=== PATIENT | female | born 1935 | race Native Hawaiian/Other Pacific Islander ===

== ENCOUNTER 2017-01-29 09:07 | Inpatient (IN) | payer MEDICARE, OTHER ==
[2017-01-29] VITALS (15 sets, daily range): BP systolic 132–222; BP diastolic 59–95; PULSE 57–117; RESP 15–24; TEMP 97.5–99.4; O2SAT 91–100
[~2017-01-29] VITALS: Ht 157.5 cm; Wt 80.4 kg
[~2017-01-29 09:07] MED LIST: ALPR.25 PO; HYDR-2768 PO; LISI-360 PO; MMW SS; PRED20 PO; SIMV20TA PO; TRAM100T19 PO
[2017-01-29] MEDS ORDERED: CHLORO250 PO (09:18)
[2017-01-29] MEDS ORDERED: ALPR.25 PO (09:18)
[2017-01-29] MEDS ORDERED: LISI-519 PO (09:18)
[2017-01-29] MEDS ORDERED: ZOCO10TA PO (09:18)
[2017-01-29] MEDS ORDERED: DILTIAZEM HCL 25 MG/5 ML VIAL IV ONE (09:45)
--- NOTE | 2017-01-29 10:01 | PD ---
HPI Chief Complaint: Seizure Time Seen by Provider: 09:18 Travel History International Travel<30 days: No Contact w/Intl Traveler<30days: No Traveled to known affect area: No History of Present Illness HPI 81yo F with PMH of meningioma s/p resection by Dr. Laurent presents to the ED with seizure today. Her son came later and he was the one who witnessed it, said she was repeating herself and making his bed. She seemed confused and then had stiffen up and her eyes rolled back. Son said he caught her and she did not fall. EVAC also witnessed another seizure and pt was given ativan 2mg IV prior to arrival. Pt was found to be in afib RVR at 107bpm. Never had afib before. Also with coarse breath sounds and O2 sat in the low 90s on nasal cannula. PFSH Past Medical History Anxiety: Yes High Cholesterol: Yes Diabetes: No Diminished Hearing: Yes ([place].) Hypertension: Yes Neurologic: Yes (HX FRONTAL BRAIN TUMOR) Immunizations Current: No Menopausal: Yes Past Surgical History Neurologic Surgery: Yes (PARTIAL BENIGN BRAIN TUMOR REMOVED [address] LAURENT) Social History Alcohol Use: No Tobacco Use: No Substance Use: No Allergies-Medications (Allergen,Severity, Reaction): Coded Allergies: penicillin G (Unverified Allergy, Mild, HIVES, 01/29/17) Reported Meds & Prescriptions Reported Meds & Active Scripts Active Reported Chlorothiazide 250 Mg Tab 250 Mg PO DAILY Xanax (Alprazolam) 0.25 Mg Tab 0.25 Mg PO Q6H PRN Lisinopril 5 Mg Tab 5 Mg PO DAILY Zocor (Simvastatin) 10 Mg Tab 10 Mg PO DAILY Review of Systems ROS Limitations: Clinical Condition Physical Exam Narrative GENERAL: 81yo F in moderate distress. SKIN: Focused skin assessment warm/dry. HEAD: Atraumatic. Normocephalic. EYES: Pupils equal and round at 3mm bilaterally. ENT: No nasal bleeding or discharge. Mucous membranes pink and moist. NECK: Trachea midline. No JVD. CARDIOVASCULAR: Irregular rate and rhythm. RESPIRATORY: Coarse breath sounds bilaterally. GASTROINTESTINAL: Abdomen soft, non-tender, nondistended. MUSCULOSKELETAL: No obvious deformities. No clubbing. No cyanosis. No edema. NEUROLOGICAL: Pt opens eyes with physical stimulation. Does not follow command. Seems post ictal. Data Data Last Documented VS Vital Signs Date Time Temp Pulse Resp B/P (MAP) Pulse Ox O2 Delivery O2 Flow Rate FiO2 01/29/17 09:30 110 15 173/73 (106) 91 Nasal Cannula 3.00 01/29/17 09:13 97.5 Orders Orders Diltiazem Inj (Cardizem Inj) (01/29/17 09:45) Ct Brain W/O Iv Contrast(Rout) (01/29/17 ) Complete Blood Count With Diff (01/29/17 09:43) Comprehensive Metabolic Panel (01/29/17 09:43) Magnesium (Mg) (01/29/17 09:43) Thyroid Stimulating Hormone (01/29/17 09:43) Prothrombin Time / Inr (Pt) (01/29/17 09:43) Act Partial Throm Time (Ptt) (01/29/17 09:43) Troponin I (01/29/17 09:43) Chest, Single Ap (01/29/17 ) Admit Order (Ed Use Only) (01/29/17 10:01) Labs Laboratory Tests Test 01/29/17 09:45 White Blood Count 15.1 TH/MM3 Red Blood Count 4.24 MIL/MM3 Hemoglobin 12.8 GM/DL Hematocrit 38.5 % Mean Corpuscular Volume 90.7 FL Mean Corpuscular Hemoglobin 30.1 PG Mean Corpuscular Hemoglobin Concent 33.2 % Red Cell Distribution Width 12.8 % Platelet Count 336 TH/MM3 Mean Platelet Volume 9.5 FL Neutrophils (%) (Auto) 55.7 % Lymphocytes (%) (Auto) 37.9 % Monocytes (%) (Auto) 3.5 % Eosinophils (%) (Auto) 1.6 % Basophils (%) (Auto) 1.3 % Neutrophils # (Auto) 8.4 TH/MM3 Lymphocytes # (Auto) 5.7 TH/MM3 Monocytes # (Auto) 0.5 TH/MM3 Eosinophils # (Auto) 0.2 TH/MM3 Basophils # (Auto) 0.2 TH/MM3 CBC Comment AUTO DIFF Differential Total Cells Counted 100 Neutrophils % (Manual) 52 % Lymphocytes % 43 % Monocytes % 4 % Eosinophils % 1 % Neutrophils # (Manual) 7.9 TH/MM3 Differential Comment FINAL DIFF MANUAL Platelet Estimate NORMAL Platelet Morphology Comment NORMAL Red Cell Morphology Comment NORMAL Prothrombin Time 10.3 SEC Prothromb Time International Ratio 1.0 RATIO Activated Partial Thromboplast Time 22.2 SEC Blood Urea Nitrogen 12 MG/DL Creatinine 1.23 MG/DL Random Glucose 192 MG/DL Total Protein 7.9 GM/DL Albumin 3.5 GM/DL Calcium Level 9.0 MG/DL Magnesium Level 1.8 MG/DL Alkaline Phosphatase 88 U/L Aspartate Amino Transf (AST/SGOT) 14 U/L Alanine Aminotransferase (ALT/SGPT) 16 U/L Total Bilirubin 0.5 MG/DL Sodium Level 138 MEQ/L Potassium Level 2.7 MEQ/L Chloride Level 102 MEQ/L Carbon Dioxide Level 15.4 MEQ/L Anion Gap 21 MEQ/L Estimat Glomerular Filtration Rate 42 ML/MIN Hemoglobin A1c 6.0 % Troponin I LESS THAN 0.02 NG/ML Thyroid Stimulating Hormone 3rd Gen 1.740 uIU/ML MDM Medical Decision Making Medical Screen Exam Complete: Yes Emergency Medical Condition: Yes Interpretation(s) EKG: Afib at 107bpm. ST depression diffusely. Normal axis. Differential Diagnosis ICH vs. CVA vs. Status epilepticus Narrative Course 81yo F with PMH of meningioma here with witnessed seizure given ativan 2mg IV. Pt had coarse breath sounds and hypoxic so likely aspiration pneumonia. Pt also found to be in afib RVR 110-120s. Pt given cardizem 15mg IV and HR improved to 80s. Pt was just given ativan by EVAC but oxygen saturation is decreasing and require 5-6L NC. Discussed with daughter possibility of intubation if her mental status does not improve and her oxygenation worsens. Pt's daughter is the clinical coordinator of ICU so she called toggler Dr. Cook herself. Labs, CXR and CT brain ordered and still pending. Dr. Cook is at bedside and wants pt to be transferred to ICU from CT scan. CXR was completed in the ED and showed minimal left basilar density. Care has been taken over by ICU attending Dr. Cook at this time. Pt admitted to him. Critical Care Narrative Aggregate critical care time was 35 minutes. Time to perform other separately billable procedures was not included in the critical care time. My time did not include minutes spent treating any other patients simultaneously or on activities that did not directly contribute to the patient's treatment. The services I provided to this patient were to treat and/or prevent clinically significant deterioration that could result in: cardiovascular collapse or . I provided critical care services requiring my management, as noted below: Chart data review, documentation time, medication orders and management, vital sign assessments/reviewing monitor data, ordering and reviewing lab tests, ordering and interpreting/reviewing x-rays and diagnostic studies, care of the patient and discussion of the patient with the admitting physicians. Diagnosis Primary Impression: Acute respiratory failure Qualified Codes: J96.01 - Acute respiratory failure with hypoxia Additional Impression: Atrial fibrillation with RVR Admitting Information Admitting Physician Requests: Miri Dolan DO Jan 29, 2017 10:01
[2017-01-29] MEDS ORDERED: NOREPINEPHRINE-DEXTROSE DRIP 250 ML IV ONE (10:11)
[2017-01-29] MEDS ORDERED: PROPOFOL 500 MG/50 ML INJ 50 ML ONE ×2 (10:12→10:46)
[2017-01-29 10:14] LABS: AUTOMATED NEUTROPHIL # 8.4 TH/MM3 (1.8-7.7); BASOPHIL # 0.2 TH/MM3 (0-0.2); BASOPHIL % 1.3 % (0.0-2.0); EOSINOPHIL # 0.2 TH/MM3 (0-0.4); EOSINOPHIL % 1.6 % (0.0-4.0); HEMATOCRIT 38.5 % (35.0-46.0); LYMPH % 37.9 % (9.0-44.0); LYMPHOCYTE # 5.7 TH/MM3 (1.0-4.8); MEAN CELL VOLUME 90.7 FL (80.0-100.0); MEAN CORPUSCULAR HEMOGLOBIN 30.1 PG (27.0-34.0); MEAN CORPUSCULAR HGB CONC 33.2 % (32.0-36.0); MONO % 3.5 % (0.0-8.0); NEUT % 55.7 % (16.0-70.0); PLATELET COUNT 336 TH/MM3 (150-450); RED BLOOD COUNT 4.24 MIL/MM3 (4.00-5.30); RED CELL DISTRIBUTION WIDTH 12.8 % (11.6-17.2); WHITE BLOOD COUNT 15.1 TH/MM3 (4.0-11.0)
--- NOTE | 2017-01-29 10:14 | RADRPT ---
EXAM DATE/TIME: 01/29/2017 10:02 [facility] COMPARISON: No previous studies available for comparison. INDICATIONS : Altered mental status, seizure RADIATION DOSE: 30.55 CTDIvol (mGy) MEDICAL HISTORY : Meningioma. SURGICAL HISTORY : Craniotomy. ENCOUNTER: Initial ACUITY: 1 day PAIN SCALE: 0/10 LOCATION: cranial TECHNIQUE: Multiple contiguous axial images were obtained of the head. Using automated exposure control and adj ustment of the mA and/or kV according to patient size, radiation dose was kept as low as reasonably a chievable to obtain optimal diagnostic quality images. DICOM format image data is available electro nically for review and comparison. FINDINGS: CEREBRUM: Bifrontal encephalomalacia. Areas of low-attenuation throughout the white matter. The ventricles are normal for age. No evidence of midline shift, mass lesion, hemorrhage or acute infarction. No extra -axial fluid collections are seen. POSTERIOR FOSSA: The cerebellum and brainstem are intact. The 4th ventricle is midline. The cerebellopontine angle i s unremarkable. EXTRACRANIAL: The visualized portion of the orbits is intact. SKULL: The calvaria is intact. No evidence of skull fracture. CONCLUSION: 1. Bifrontal encephalomalacia. 2. No acute intracranial abnormality. 3. Nonspecific white matter changes Kiko Carson MD on January 29, 2017 at 10:10 Board Certified Radiologist. This report was verified electronically.
[2017-01-29] MEDS ORDERED: ETOMIDATE 40 MG/20 ML VIAL ONE (10:15)
[2017-01-29] MEDS ORDERED: NOREPINEPHRINE INJ 4 MG in SODIUM CHLOR 0.9% 250 ML INJ 246 ML IV PRN ×2 (10:15→10:45)
[2017-01-29] MEDS ORDERED: TERBUTALINE INJ 1 MG/ML AMP SQ PRN (10:15)
[2017-01-29] MEDS ORDERED: MIDAZOLAM HCL 5 MG/ML VIAL (1 ML) ONE (10:15)
[2017-01-29 10:16] LABS: HEMO FLAGS AUTO DIFF
[2017-01-29] MEDS ORDERED: ROCURONIUM INJ 50 MG/5 ML VIAL ONE (10:16)
--- NOTE | 2017-01-29 10:21 | RADRPT ---
EXAM DATE/TIME: 01/29/2017 09:54 [facility] COMPARISON: No previous studies available for comparison. INDICATIONS : Hypoxemia. MEDICAL HISTORY : Hypercholesterolemia. Hypertension Anxiety. SURGICAL HISTORY : Unobtainable. ENCOUNTER: Initial ACUITY: 1 day PAIN SCORE: Non-responsive. LOCATION: Bilateral chest FINDINGS: A single view of the chest demonstrates left basilar density. Right lung is clear. The cardiomediast inal contours are unremarkable. Osseous structures are intact. CONCLUSION: Left basilar density. Kiko Carson MD on January 29, 2017 at 10:15 Board Certified Radiologist. This report was verified electronically.
[2017-01-29 10:28] LABS: APTT (PATIENT) 22.2 SEC (24.3-30.1); PROTHROMBIN TIME - PATIENT 10.3 SEC (9.8-11.6)
[2017-01-29] MEDS ORDERED: FOSPHENYTOIN INJ 1,000 MGPE in SODIUM CHLORIDE 0.9% INJ 50 ML IV ONE (10:45)
[2017-01-29 10:47] LABS: EOSINOPHILS 1 % (0-4); NEUTROPHIL # MANUAL DIFF 7.9 TH/MM3 (1.8-7.7); PLATELET ESTIMATE SMEAR NORMAL (NORMAL); PLATELET MORPHOLOGY NORMAL (NORMAL); POLYS (SEG NEUTROPHILS) 52 % (16-70); SCAN/DIFF FINAL DIFF MANUAL; WBC DIFF SAMPLE 100
--- NOTE | 2017-01-29 10:53 | PD.PROCEDR ---
Procedure Note Procedure After the risks and benefits were discussed the following procedure was performed: INTUBATION: The patient was put in optimal position for the procedure. Rapid sequence intubation was initiated by me using 20 milligrams of etomidate IV and 5 milligrams of Versed IV, and rocuronium 50 mg. DL with Mac 4 blade, Grade 1 view. The patient was intubated with a 7.5 cuffed endotracheal tube. Tube placement was confirmed by visualization of the tube and balloon passing through the cords, capnometry and subsequent chest x-ray. Breath sounds were equal and well aerated bilaterally postintubation. No breath sounds over stomach. Patient tolerated procedure well. Juan Cook MD Jan 29, 2017 10:53
[2017-01-29 10:54] LABS: ALKALINE PHOSPHATASE 88 U/L (45-117); ALT (GPT) 16 U/L (10-53); ANION GAP 21 MEQ/L (5-15); AST (GOT) 14 U/L (15-37); BICARBONATE 15.4 MEQ/L (21.0-32.0); BLOOD UREA NITROGEN 12 MG/DL (7-18); CHLORIDE 102 MEQ/L (98-107); GLOMERULAR FILTRATION RATE 42 ML/MIN (>89); MAGNESIUM 1.8 MG/DL (1.5-2.5); SODIUM (NA) 138 MEQ/L (136-145); TOTAL BILIRUBIN ADULT 0.5 MG/DL (0.2-1.0)
--- NOTE | 2017-01-29 10:54 | RADRPT ---
EXAM DATE/TIME: 01/29/2017 10:36 [facility] COMPARISON: CHEST SINGLE AP, January 29, 2017, 9:54. INDICATIONS : Post central line and ET Tube placement. MEDICAL HISTORY : Hypercholesterolemia. Hypertension Anxiety. SURGICAL HISTORY : Unobtainable. ENCOUNTER: Subsequent ACUITY: 1 day PAIN SCORE: Non-responsive. LOCATION: Bilateral chest FINDINGS: A single view of the chest demonstrates minimal left basilar density without evidence of mass, infilt rate or effusion. Endotracheal tube 3 cm above the rozina. Left jugular central line with tip in the SVC. No pneumothorax. The cardiomediastinal contours are unremarkable. Osseous structures are intac t. CONCLUSION: 1. Minimal left basilar density. 2. Adequate placement of endotracheal tube and left jugular central line Kiko Carson MD on January 29, 2017 at 10:52 Board Certified Radiologist. This report was verified electronically.
[2017-01-29 10:56] LABS: POTASSIUM 2.7 MEQ/L (3.5-5.1)
--- NOTE | 2017-01-29 11:13 | MB ---
cc: MARISOL BEARDEN M.D. DATE OF CONSULTATION 01/29/2017 REASON FOR CONSULTATION Seizure, rule out stroke. HISTORY OF PRESENT ILLNESS Ms. Monreal is an 81 year-old female with a history of previous left frontal meningioma which was initially resected in 2001. There is residual tumor due to the proximity to the optic nerve. She has a questionable history of TIA four years ago. She was in her usual state of health until today when she suddenly developed difficulty with her speech repeating the same thing over and over again and then sudden went into a grand mal seizure with jerking of both upper and lower extremities. She had repetitive seizures, presented to the ER, was given Ativan. She has been ordered to be loaded with Cerebyx as well. No previous history of seizures. In the ER was found to be weak on the right side, however, this was showing improvement according to her daughter. She was able to pull the sheets up with the right arm whereas initially she had difficulty with that. PAST MEDICAL HISTORY Remarkable for: 1. Left frontal meningioma partially resected. 2. She has new onset atrial fibrillation just noticed today. No prior history of atrial fibrillation. 3. Hypercholesterolemia 4. Anxiety MEDICATIONS 1. Xanax 0.25 mg a day 2. Chlorothiazide 250 mg daily 3. Lisinopril 5 mg daily 4. Zocor 10 mg daily. Apparently she ran out of the Xanax last Sunday. NEUROLOGICAL EXAM This is limited as the patient is on Propofol and paralyzed. VITAL SIGNS: Blood pressure 177/77, pulse 110, respirations 15, temperature is 97.5 degrees. HIGHER CORTICAL FUNCTION: The patient is sedated on Propofol. CRANIAL NERVES: Pupils are 2 mm symmetric, extraocular movements are intact to dolls' eye maneuver. MOTOR EXAM: There are no spontaneous movements. No withdrawal as she is sedated and on paralytics. Reflexes are absent. CT scan of the head shows encephalomalacia in the bifrontal region, no acute change. LABS The white count is 15,000, hemoglobin 12.8, hematocrit 38%, platelets 336,000. Coag's PT 10.3, INR 1, APTT 22.2. The rest of the labs are pending. EKG atrial fibrillation. IMPRESSION I suspect this probably is a focal seizure probable with a left hemisphere focus from her meningioma with the initial speech changes and then secondary generalization. 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 However given the new onset atrial fibrillation, we need to rule out stroke. Would recommend proceeding therefore with a stat MRI of the brain to see if there is any diffusion abnormality. Would not recommend IV tPA in this case even if there is a stroke on the MRI, however, because of the residual tumor which would post a hemorrhagic risk. However if the MRI does reveal evidence of a diffusion defect consistent with a stroke, would suspect possible CT angiography to evaluate for possible thrombectomy. I agree with letting the . We will obtain an EEG as well. Place under seizure precautions. Thank you for asking us to see this patient. MD YOSELIN Griffin/OLI /10:49 AM /10:53 AM
[2017-01-29] MEDS ORDERED: GADODIAMIDE PF 287 MG/ML 5 ML VIAL (for RAD MRI) IVCONTRAST ONE ×2 (11:21→14:20)
[2017-01-29 11:43] LABS: BLOOD, URINE SMALL (NEG); COMMENT (UR) CATH-CULT NOT IND; CULTURE IF INDICATED CATH CULTURE NOT IND; GLUCOSE,URINE NEG (NEG); HYALINE CAST, URINE 4 /lpf (RARE); KETONE, URINE TRACE mg/dL (NEG); MUCUS URINE FEW /lpf (OCC); NITRITE,URINE NEG (NEG); SQUAMOUS EPITHELIAL CELL URINE <1 /hpf (0-5); URINE COLOR LIGHT-YELLOW (YELLW/STRAW)
[2017-01-29] MEDS ORDERED: ICU - MAGNESIUM OXIDE 400 MG TAB PO PRN (12:00)
[2017-01-29] MEDS ORDERED: ICU - MAGNESIUM SULFATE 4 GM/NS 100 ML IV PRN ×2 (12:00)
[2017-01-29] MEDS ORDERED: ICU - POTASSIUM PHOSPHATE 30 MMOL/NS 250 ML IV PRN ×2 (12:00)
[2017-01-29] MEDS ORDERED: ICU - CALL ORDERING PHYSICIAN PRN (12:00)
[2017-01-29] MEDS ORDERED: POTASSIUM CHLORIDE 25 MEQ EFFERVESCENT TAB PO PRN (12:00)
[2017-01-29] MEDS ORDERED: ICU - MAGNESIUM SULFATE 2 GM/NS 100 ML IV PRN ×2 (12:00)
[2017-01-29] MEDS ORDERED: ICU - SODIUM PHOSPHATE 30 MMOL/NS 250 ML IV PRN ×2 (12:00)
[2017-01-29] MEDS ORDERED: ICU - D/C ICU ELECTROLYTE ORDERS PRN (12:00)
[2017-01-29] MEDS ORDERED: ICU - POTASSIUM PHOSPHATE MONOBASIC 500 MG TAB PO PRN (12:00)
--- NOTE | 2017-01-29 12:01 | HHI.HP ---
HPI Service Critical Care Medicine Primary Care Physician Leah Borja MD Admission Diagnosis Status epilepticus, afib RVR Diagnosis: (1) New onset seizure Diagnosis: Principal (2) Acute encephalopathy Diagnosis: Principal (3) Todds paralysis vs acute CVA Diagnosis: Principal (4) Acute respiratory failure Diagnosis: Principal (5) Atrial fibrillation with RVR Diagnosis: Principal (6) Possible aspiration Diagnosis: Principal (7) History of resection of meningioma Diagnosis: Principal Chief Complaint: Recurrent seizure Probable aspiration Possible CVA Travel History International Travel<30 Days: No Contact w/Intl Traveler <30 Da: No Traveled to Known Affected Are: No History of Present Illness Patient is a 71-year-old female with past medical history significant for a left frontal meningioma resection in 2001 with residual tumor (MRI showing meningioma 5.4x4.4x1.6cm), hypertension, dyslipidemia who was found to have a 5-10 minutes witnessed tonic-clonic seizure today. EMS was called and on their arrival patient had another two-minute tonic-clonic seizures and received 2 mg Ativan. In the ER was evaluated by Dr. Harper. Critical care medicine was consulted for new onset seizures and postictal encephalopathy. I immediately evaluated the patient in the ED. Patient is difficult to arouse even though she opens eyes to painful stimuli immediately goes back to sleep. Withdraws extremities localizes with left upper extremity. Right upper extremity appeared weaker. Her chest exam revealed bilateral coarse wheezes and crackles, airway protection questionable. A stat CT showed bifrontal encephalomalacia but no acute findings. Patient was emergently moved to the ICU and I intubated her for airway protection. Also placed left IJ central line. Case discussed extensively with Dr. Osman neurology. In his opinion, which I agree it appears that patient suffered new onset grand mal seizure with Gómez's paralysis and less likely to be acute CVA. With history of meningioma Dr. Osman does not want to do empiric TPA. We will get a stat MRI of the brain. Daughter was updated. Patient has a history of questionable TIA about 4 years ago. I have ordered Cerebyx loading dose 1 g and continued Cerebyx at 100 mg every 8 hours. Stat EEG also pending at this time. I'm also given a history that patient has chronic Xanax use 0.25 mg daily at bedtime for insomnia. She had ran out of Xanax since 01/26/17. Patient was also found to be in atrial fibrillation with rapid ventricular response which is new onset. Post intubation and sedation rate is controlled patient remains in A. fib Review of Systems ROS Limitations: Altered Mental Status Past Family Social History Allergies: Coded Allergies: penicillin G (Unverified Allergy, Mild, HIVES, 01/29/17) Past Medical History MRI 05/12/16 showing meningioma 5.4x4.4x1.6cm Dyslipidemia Hypertension Anxiety New onset A. fib Past Surgical History Frontal meningioma resection in 2001 Reported Medications Chlorothiazide 250 Mg Tab 250 Mg PO DAILY Xanax (Alprazolam) 0.25 Mg Tab 0.25 Mg PO Q6H PRN Lisinopril 5 Mg Tab 5 Mg PO DAILY Zocor (Simvastatin) 10 Mg Tab 10 Mg PO DAILY Active Ordered Medications Reviewed Family History No family history of brain tumors or seizures Social History No alcohol or tobacco use Physical Exam Vital Signs Vital Signs Date Time Temp Pulse Resp B/P (MAP) Pulse Ox O2 Delivery O2 Flow Rate FiO2 01/29/17 11:30 100 Mechanical Ventilator 50 01/29/17 10:20 50 01/29/17 10:20 100 50 01/29/17 10:19 01/29/17 09:30 110 15 173/73 (106) 91 Nasal Cannula 3.00 01/29/17 09:18 113 15 97 Non-Rebreather 15.00 01/29/17 09:13 97.5 117 15 98 Non-Rebreather 15.00 Physical Exam GENERAL: 81-year-old female somnolent tender SKIN:Warm/dry. HEAD: Atraumatic. Normocephalic. EYES: Pupils equal and round at 2mm bilaterally. ENT: No nasal bleeding or discharge. NECK: Trachea midline. No JVD. CARDIOVASCULAR: Atrial fibrillation with rapid ventricular response. No murmur appreciated. RESPIRATORY: Coarse breath sounds bilaterally. Bilateral expiratory wheezing heard GASTROINTESTINAL: Abdomen soft, non-tender, nondistended. MUSCULOSKELETAL: No obvious deformities. No clubbing. No cyanosis. No edema. NEUROLOGICAL: Patient is obtunded, briefly opens eyes to painful stimuli. Localizes with left upper extremity withdrawals bilateral lower extremity. Limited withdrawal of right upper extremity Laboratory Laboratory Tests Test 01/29/17 09:45 01/29/17 10:30 White Blood Count 15.1 Red Blood Count 4.24 Hemoglobin 12.8 Hematocrit 38.5 Mean Corpuscular Volume 90.7 Mean Corpuscular Hemoglobin 30.1 Mean Corpuscular Hemoglobin Concent 33.2 Red Cell Distribution Width 12.8 Platelet Count 336 Mean Platelet Volume 9.5 Neutrophils (%) (Auto) 55.7 Lymphocytes (%) (Auto) 37.9 Monocytes (%) (Auto) 3.5 Eosinophils (%) (Auto) 1.6 Basophils (%) (Auto) 1.3 Neutrophils # (Auto) 8.4 Lymphocytes # (Auto) 5.7 Monocytes # (Auto) 0.5 Eosinophils # (Auto) 0.2 Basophils # (Auto) 0.2 CBC Comment AUTO DIFF Differential Total Cells Counted 100 Neutrophils % (Manual) 52 Lymphocytes % 43 Monocytes % 4 Eosinophils % 1 Neutrophils # (Manual) 7.9 Differential Comment FINAL DIFF MANUAL Platelet Estimate NORMAL Platelet Morphology Comment NORMAL Red Cell Morphology Comment NORMAL Prothrombin Time 10.3 Prothromb Time International Ratio 1.0 Activated Partial Thromboplast Time 22.2 Blood Urea Nitrogen 12 Creatinine 1.23 Random Glucose 192 Total Protein 7.9 Albumin 3.5 Calcium Level 9.0 Magnesium Level 1.8 Alkaline Phosphatase 88 Aspartate Amino Transf (AST/SGOT) 14 Alanine Aminotransferase (ALT/SGPT) 16 Total Bilirubin 0.5 Sodium Level 138 Potassium Level 2.7 Chloride Level 102 Carbon Dioxide Level 15.4 Anion Gap 21 Estimat Glomerular Filtration Rate 42 Troponin I LESS THAN 0.02 Thyroid Stimulating Hormone 3rd Gen 1.740 Urine Color LIGHT-YELLOW Urine Turbidity CLEAR Urine pH 7.0 Urine Specific [place] 1.012 Urine Protein 300 Urine Glucose (UA) NEG Urine Ketones TRACE Urine Occult Blood SMALL Urine Nitrite NEG Urine Bilirubin NEG Urine Urobilinogen LESS THAN 2.0 Urine Leukocyte Esterase NEG Urine RBC 3 Urine WBC 3 Urine Squamous Epithelial Cells <1 Urine Hyaline Casts 4 Urine Mucus FEW Microscopic Urinalysis Comment CATH-CULT NOT IND Result Diagram: 01/29/1794401/29/[address] of the brain shows bifrontal encephalomalacia MRI pending at this time Caprini VTE Risk Assessment Caprini VTE Risk Assessment: Mod/High Risk (score >= 2) VTE Pharm Contraindication: Intracranial lesions Caprini Risk Assessment Model Point Value = 1 Point Value = 2 Point Value = 3 Point Value = 5 Age 41-60 Minor surgery BMI > 25 kg/m2 Swollen legs Varicose veins or History of unexplained or recurrent spontaneous Oral contraceptives or hormone replacement Sepsis (< 1 month) Serious lung disease, including pneumonia (< 1 month) Abnormal pulmonary function Acute myocardial infarction Congestive heart failure (< 1 month) History of inflammatory bowel disease Medical patient at bed rest Age 61-74 Arthroscopic surgery Major open surgery (> 45 min) Laparoscopic surgery (> 45 min) Malignancy Confined to bed (> 72 hours) Immobilizing plaster cast Central venous access Age >= 75 History of VTE Family history of VTE Factor V Leiden Prothrombin [id number] Lupus anticoagulant Anticardiolipin antibodies Elevated serum homocysteine Heparin-induced thrombocytopenia Other congenital or acquired thrombophilia Stroke (< 1 month) Elective arthroplasty Hip, pelvis, or leg fracture Acute spinal cord injury (< 1 month) Prophylaxis Regimen Total Risk Factor Score Risk Level Prophylaxis Regimen 0-1 Low Early ambulation 2 Moderate Order ONE of the following: *Sequential Compression Device (SCD) *Heparin 5000 units SQ BID 3-4 Higher Order ONE of the following medications: *Heparin 5000 units SQ TID *Enoxaparin/Lovenox 40 mg SQ daily (WT < 150 kg, CrCl > 30 mL/min) *Enoxaparin/Lovenox 30 mg SQ daily (WT < 150 kg, CrCl > 10-29 mL/min) *Enoxaparin/Lovenox 30 mg SQ BID (WT < 150 kg, CrCl > 30 mL/min) AND/OR *Sequential Compression Device (SCD) 5 or more Highest Order ONE of the following medications: *Heparin 5000 units SQ TID (Preferred with Epidurals) *Enoxaparin/Lovenox 40 mg SQ daily (WT < 150 kg, CrCl > 30 mL/min) *Enoxaparin/Lovenox 30 mg SQ daily (WT < 150 kg, CrCl > 10-29 mL/min) *Enoxaparin/Lovenox 30 mg SQ BID (WT < 150 kg, CrCl > 30 mL/min) AND *Sequential Compression Device (SCD) Assessment and Plan Assessment and Plan NEURO: New onset seizures with postictal state Post ictal Gómez's paralysis Acute encephalopathy Large frontal meningioma - Received Ativan for seizure. Continue Ativan 2 mg IV every 4 hours when necessary for seizures - Stat EEG. Cerebyx loading dose 1 g and 100 mg every 8 hours - Postintubation propofol for sedation and vent synchrony - CT of the head did not show any acute changes, MRI of the brain to rule out acute stroke is pending - With history of large meningioma Dr. Osman does not want to give empiric TPA - Start aspirin 81 mg daily - Neurosurgery Dr. Fabian Consulted. Discussed extensively with neurology Dr. Osman adn Dr. Fabian - MRI 05/12/16 showing meningioma 5.4x4.4x1.6cm RESP: Acute respiratory failure Aspiration pneumonitis - Intubated for airway protection - Continue assist control mechanical ventilation, ventilator bundle, DuoNeb every 6 hours when necessary - Check sputum culture - Start SBT once neuro status improved, seizures controlled CV: New onset atrial fibrillation with RVR Permissive hypertension - Normal saline IV fluids 2L bolus and 125 ml per hour - check 2d echo, cardiac enzymes, check TSH - Target systolic blood pressure 170-180, until stroke is ruled out. IV labetolol, hydralazine to keep SBP <180 - Cardizem if needed for heart rate control - Start aspirin 81 mg daily - Discussed with Dr. Osman, avoid anticoagulation until cleared by neurosurgery GI: - NPO except meds, IV famotidine : Acute kidney injury most likely from dehydration - Continue aggressive hydration as above. Monitor renal function closely. Viera catheter. ID: - Monitor for infection especially aspiration pneumonia - Check sputum culture, check UA. No antibiotics at this time HEME: Leukocytosis - Monitor CBC, CMP, coags - Leukocytosis most likely related to stress ENDO: Hypokalemia Hyperglycemia - Electrolyte replacement per protocol - Sliding-scale insulin - Check hemoglobin A1c PROPH: - Bilateral lower extremity SCDs. Avoid chemical DVT prophylaxis until cleared by neurosurgery. IV famotidine for GI prophylaxis LINES: - Left IJ central line placed CC time 42 min excluding procedures Code Status Full Discussed Condition With Rui Corral and daughter Juan Penaloza MD Jan 29, 2017 12:01
[2017-01-29] MEDS: SODIUM CHLOR 0.9% 1000 ML INJ 1,000 ML IV SCH ×2 (12:14→18:55)
[2017-01-29] MEDS: ICU - POTASSIUM CHLORIDE/AQUEOUS SOLN 20 MEQ/100 ML IVPB IV PRN ×2 (12:28→14:32)
[2017-01-29] MEDS ORDERED: hydrALAZINE HCL 20 MG/ML VIAL IV PUSH PRN (12:30)
--- NOTE | 2017-01-29 12:41 | PD.PROCEDR ---
Central Line Procedure REASON FOR PROCEDURE Central venous access PROCEDURE PERFORMED Central line placement: LIJ central line, US guided CONSENT Informed consent for procedure was obtained from daughter. The risks and benefits of the procedure were discussed to include but limited to bleeding, clot formation, infection, and even . ANESTHESIA Local injection of 1% Lidocaine DESCRIPTION OF THE PROCEDURE The patient was placed in supine, mild Trendelenburg position. The area was exposed and cleansed with ChloraPrep, times two. Large sterile drape was used to cover the patient, with the site exposed, under sterile conditions including cap, face mask, sterile gown, and sterile gloves. On single attempt, the introducer needle was inserted with negative pressure in syringe and venous flash was obtained. The guide wire was then advanced without any restriction and the needle was removed. The dilator was used without any complications. Using Seldinger technique the 20 CM 7F catheter was advanced over the guide wire to a depth of 18 centimeters. The guide wire was removed. All ports were aspirated with dark venous blood return and flushed easily with sterile saline. All ports were capped. Antibiotic disc was placed around central line at puncture site. The central line was secured to the skin with two interrupted 2.0 silk sutures. The area was bandaged with sterile see-through central line bandage. RADIOLOGICAL DATA Ultrasound guidance was used to locate LIJ COMPLICATIONS: No apparent complications ESTIMATED BLOOD LOSS: Less than 1 cc. Juan Cook MD Jan 29, 2017 12:41
[2017-01-29] MEDS ORDERED: LABETALOL HCL 100 MG/20 ML VIAL IV PUSH PRN (12:45)
[2017-01-29] MEDS ORDERED: LORazepam 2 MG/ML VIAL IV PUSH PRN (13:00)
--- NOTE | 2017-01-29 13:07 | MG ---
cc: ANNETTE CLAYTON M.D. Lab No: 17- Date: 01/29/2017 Age: 81 Sex: F Race: ___ INDICATIONS A stat EEG was obtained on this 81-year-old patient described as intubated, off Diprivan before the EEG was started. TECHNIQUE This EEG shows some mixture of rhythms. There are beta and theta rhythms. There is also some intermixed delta activity. There appears to be more of the slower rhythms on the right frontal head region and there is also decreased amplitude of the faster rhythms on the right. There are some associated sharp waves, but no spike discharges. No suggestions of ictal pattern. Photic stimulation disclosed no significant change. Throughout the study, there is some head movement discussed by the pharmacy technician assistant, but there were no clinical seizures. INTERPRETATION Abnormal EEG because of bilateral abnormalities possibly worse on the right hemisphere maximum frontally. These findings suggest bilateral structural abnormalities right more than left. There are some frontal sharp waves, but no definitive paroxysmal discharge present. No ictal pattern. MD HÉCTOR Wells/OLI /12:53 PM /12:59 PM
[2017-01-29 13:11] LABS: BLOOD GAS BASE EXCESS -3.4 mmol/L (-2-2); BLOOD GAS CARBOXYHEMOGLOBIN 0.8 % (0-4); BLOOD GAS HCO3 21 mmol/L (22-26); BLOOD GAS METHEMOGLOBIN 0.9 % (0-2); BLOOD GAS O2 HGB SATURATION 97 % (90-100); BLOOD GAS OXYGEN CONTENT 17.1 Vol % (12.0-20.0); BLOOD GAS PCO2 40 mmHg (38-42); BLOOD GAS PO2 141 mmHg (61-120); BLOOD GAS TOTAL HGB 12.4 G/DL (12.0-16.0); CRITICAL VALUE NO; DRAW SITE RT RADIAL; FIO2 50 %; NUMBER OF ARTERIAL PUNCTURES 1; OXYGEN DEVICE VENTILATOR; STAT NO; TEMP CORR TO 98.6; ULNAR PULSE PRESENT
[2017-01-29] MEDS ORDERED: GLUCAGON 1 MG/ML VIAL OTHER PRN (14:15)
[2017-01-29] MEDS ORDERED: DEXTROSE 50% IN WATER 50 ML VIAL(D50) IV PUSH PRN (14:15)
[2017-01-29] MEDS: FOSPHENYTOIN SODIUM 100 MG PE/2 ML VIAL IV SCH ×2 (14:33→21:55)
--- NOTE | 2017-01-29 14:38 | RADRPT ---
EXAM DATE/TIME: 01/29/2017 11:06 [facility] COMPARISON: No previous studies available for comparison. INDICATIONS : Right sided weakness. Seizures. CONTRAST: 14 cc Omniscan (gadodiamide) IV MEDICAL HISTORY : Hypertension. SURGICAL HISTORY : 2002 frontal lobe mengioma ENCOUNTER: Initial ACUITY: 1 day PAIN SCORE: Nonresponsive. LOCATION: cranial TECHNIQUE: Multiplanar, multisequence MRI of the brain was performed both prior to and following the administrat ion of paramagnetic contrast. FINDINGS: CEREBRUM: Extensive encephalomalacia with volume loss in marginal gliosis is identified in both frontal lobes. There is a large overlying craniotomy defect from prior surgery. Enhancing extra-axial mass is identified along the planum sphenoidale. The mass extends laterall y over the orbital apices and along the floor of the left anterior cranial fossa. Enhancing component within the left anterior cranial fossa and measures 1.8 x 3.6 x 1.9 cm in size. There is mild to mod erate mass effect seen in the orbital frontal region of the left frontal lobe. Suprasellar extension of the mass is seen centrally. The nodules are moderately distended. There is thinning of the corpus callosum. There are no foc ally obstructing lesion is identified. WHITE MATTER: Confluent periventricular T2 hyperintensity is noted. Additionally there are small foci of hyperinten sity throughout the deep white matter of the cerebral hemispheres. POSTERIOR FOSSA: The cerebellum and brainstem are intact. The 4th ventricle is midline. The cerebellopontine angle is unremarkable. The cerebellar tonsils are normal in position. DIFFUSION IMAGING: No focal areas of restricted diffusion are seen. No evidence of acute infarction. EXTRACRANIAL: The visualized portions of the orbits and paranasal sinuses are unremarkable. CONCLUSION: 1. Residual versus recurrent enhancing extra-axial mass is identified in the suprasellar cistern, eduin ng the planum sphenoidale and within the anterior cranial fossa. The largest component is in the left anterior cranial fossa causing mild to moderate effacement of the orbital frontal region of the fron brian lobe. 2. No evidence of acute infarct, hemorrhage or edema. 3. Extensive bifrontal encephalomalacia status post craniotomy. 4. 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 Mor Mckinnon MD on January 29, 2017 at 14:24 Board Certified Radiologist. This report was verified electronically.
[2017-01-29] MEDS: INSULIN ASPART SUPPLEMENTAL SCALE SQ SCH ×3 (14:41→23:00)
[2017-01-29] MEDS: PROPOFOL 1000 MG/100 ML IV PRN (16:22)
[2017-01-29 17:06] LABS: ANION GAP 8 MEQ/L (5-15); AST (GOT) 13 U/L (15-37); BICARBONATE 25.6 MEQ/L (21.0-32.0); BLOOD UREA NITROGEN 13 MG/DL (7-18); CHLORIDE 105 MEQ/L (98-107); GLOMERULAR FILTRATION RATE 54 ML/MIN (>89); MAGNESIUM 1.6 MG/DL (1.5-2.5); POTASSIUM 3.7 MEQ/L (3.5-5.1); SODIUM (NA) 139 MEQ/L (136-145)
[2017-01-29 17:08] LABS: ALT (GPT) 17 U/L (10-53)
[2017-01-29 17:17] LABS: HEMOGLOBIN A1b 1.8 %; HEMOGLOBIN Ao 84.4 %; HEMOGLOBIN LA1C 2.3 %; HEMOGLOBIN P3 3.8 %
[2017-01-29 17:43] LABS: ALKALINE PHOSPHATASE 80 U/L (45-117); TOTAL BILIRUBIN ADULT 0.5 MG/DL (0.2-1.0)
--- NOTE | 2017-01-29 18:27 | EKG ---
Date Performed: 01/29/2017 Time Performed: 09:18:39 PTAGE: 81 years EKG: Narrow complex tachycardia most consistent with a multifocal atrial tachycardia with clear organized atrial activity noted ST DEVIATION AND MODERATE T-WAVE ABNORMALITY, CONSIDER LATERAL ISCHEM IA Compared to previous tracing, the above rhythm as wwell as the associated ST depression are new, c onsider ischemia ABNORMAL ECG PREVIOUS TRACING : 03/29/2013 06.36 DOCTOR: Toni Rendon Interpretating Date/Time 01/29/2017 18:25:53
--- NOTE | 2017-01-29 19:07 | PD.CONS ---
History of Present Illness Service Neurosurgery Consult Requested By Dr. Cook-forestry professor Reason for Consult New onset seizure. Recurrent Meningioma. Primary Care Physician Leah Borja MD Diagnoses: History of Present Illness Ms. 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 The patient this done while up until today when she developed acute onset of speech deficit followed by a grand mal seizure. She was brought to the emergency room and intubated for airway protection. Initial CT scan did not reveal any hemorrhage or other acute changes. She has been placed on Sravanthi back sprain. She has been seen by neurology and EEG report indicates right greater than left frontal slowing with sharp waves but no focal ictal activity. The patient was noted to be in atrial fibrillation on presentation to the emergency room. She does not have a history of atrial fibrillation. Review of Systems Unable to obtain from the patient. No recent medical problems reported Past Family Social History Allergies: Coded Allergies: penicillin G (Unverified Allergy, Mild, HIVES, 01/29/17) Past Medical History Hypertension Dyslipidemia Anxiety disorder Chronic insomnia New onset atrial fibrillation History frontal meningioma Past Surgical History Bifrontal craniotomy resection of meningioma September 2001 Active Ordered Medications Reported Meds & Active Scripts Active Reported Chlorothiazide 250 Mg Tab 250 Mg PO DAILY Xanax (Alprazolam) 0.25 Mg Tab 0.25 Mg PO Q6H PRN Lisinopril 5 Mg Tab 5 Mg PO DAILY Zocor (Simvastatin) 10 Mg Tab 10 Mg PO DAILY Family History Negative for brain tumor Social History Does not smoke cigarettes or use alcohol Physical Exam Vital Signs Vital Signs Date Time Temp Pulse Resp B/P (MAP) Pulse Ox O2 Delivery O2 Flow Rate FiO2 01/29/17 18:00 68 01/29/17 17:00 97 40 01/29/17 16:41 70 157/70 01/29/17 16:40 70 157/70 01/29/17 16:00 99.2 69 16 139/64 (89) 100 01/29/17 16:00 69 01/29/17 16:00 40 01/29/17 14:00 57 01/29/17 14:00 40 01/29/17 14:00 40 01/29/17 13:57 99 60 01/29/17 12:07 77 132/59 01/29/17 12:00 81 01/29/17 12:00 98.0 81 16 222/95 (137) 100 01/29/17 11:30 98 50 01/29/17 11:30 100 Mechanical Ventilator 50 01/29/17 10:30 70 01/29/17 10:30 97.5 70 16 132/59 (83) 100 01/29/17 10:20 50 01/29/17 10:20 100 50 01/29/17 10:19 01/29/17 09:30 110 15 173/73 (106) 91 Nasal Cannula 3.00 01/29/17 09:18 113 15 97 Non-Rebreather 15.00 01/29/17 09:13 97.5 117 15 98 Non-Rebreather 15.00 Physical Exam GENERAL: This is a well-nourished, well-developed patient, intubated and sedated on propofol SKIN: No rashes, ecchymoses or lesions. Cool and dry. HEAD: Atraumatic. Normocephalic. No temporal or scalp tenderness. EYES: Sclerae are nonicteric ENT: No facial or periorbital edema or ecchymosis. Intubated. NECK: Trachea midline. No JVD or lymphadenopathy. No nuchal rigidity CARDIOVASCULAR: Regular rate and rhythm without murmurs, gallops, or rubs. RESPIRATORY: Clear to auscultation. Breath sounds equal bilaterally. No wheezes , rales, or rhonchi. GASTROINTESTINAL: Abdomen soft, nondistended. No hepato-splenomegaly, or palpable masses. MUSCULOSKELETAL: Extremities without clubbing, cyanosis, or edema. No joint tenderness, effusion, or edema noted. No calf tenderness. Negative Homans sign bilaterally. NEUROLOGICAL: She is awake and relatively alert, on low-dose propofol Mild agitation She moves all extremities with moderate strength to command Conjugate extraocular movements Mid range reactive pupils Facial sensorimotor, tongue, palate, visual ca to confrontation cannot be fully assessed due to intubation and mental status. She does respond to visual stimuli in her right and left visual quadrants bilateral. Gerry's response absent bilateral No ankle clonus Findings motor and cerebellar testing cannot be fully assessed due to altered mental status. Laboratory Laboratory Tests Test 01/29/17 09:45 01/29/17 10:30 01/29/17 10:40 01/29/17 12:20 White Blood Count 15.1 Red Blood Count 4.24 Hemoglobin 12.8 Hematocrit 38.5 Mean Corpuscular Volume 90.7 Mean Corpuscular Hemoglobin 30.1 Mean Corpuscular Hemoglobin Concent 33.2 Red Cell Distribution Width 12.8 Platelet Count 336 Mean Platelet Volume 9.5 Neutrophils (%) (Auto) 55.7 Lymphocytes (%) (Auto) 37.9 Monocytes (%) (Auto) 3.5 Eosinophils (%) (Auto) 1.6 Basophils (%) (Auto) 1.3 Neutrophils # (Auto) 8.4 Lymphocytes # (Auto) 5.7 Monocytes # (Auto) 0.5 Eosinophils # (Auto) 0.2 Basophils # (Auto) 0.2 CBC Comment AUTO DIFF Differential Total Cells Counted 100 Neutrophils % (Manual) 52 Lymphocytes % 43 Monocytes % 4 Eosinophils % 1 Neutrophils # (Manual) 7.9 Differential Comment FINAL DIFF MANUAL Platelet Estimate NORMAL Platelet Morphology Comment NORMAL Red Cell Morphology Comment NORMAL Prothrombin Time 10.3 Prothromb Time International Ratio 1.0 Activated Partial Thromboplast Time 22.2 Blood Urea Nitrogen 12 Creatinine 1.23 Random Glucose 192 Total Protein 7.9 Albumin 3.5 Calcium Level 9.0 Magnesium Level 1.8 Alkaline Phosphatase 88 Aspartate Amino Transf (AST/SGOT) 14 Alanine Aminotransferase (ALT/SGPT) 16 Total Bilirubin 0.5 Sodium Level 138 Potassium Level 2.7 Chloride Level 102 Carbon Dioxide Level 15.4 Anion Gap 21 Estimat Glomerular Filtration Rate 42 Hemoglobin A1c 6.0 Troponin I LESS THAN 0.02 Thyroid Stimulating Hormone 3rd Gen 1.740 Urine Color LIGHT-YELLOW Urine Turbidity CLEAR Urine pH 7.0 Urine Specific [place] 1.012 Urine Protein 300 Urine Glucose (UA) NEG Urine Ketones TRACE Urine Occult Blood SMALL Urine Nitrite NEG Urine Bilirubin NEG Urine Urobilinogen LESS THAN 2.0 Urine Leukocyte Esterase NEG Urine RBC 3 Urine WBC 3 Urine Squamous Epithelial Cells <1 Urine Hyaline Casts 4 Urine Mucus FEW Microscopic Urinalysis Comment CATH-CULT NOT IND Nasal Screen MRSA (PCR) MRSA NOT DETECTED Lactic Acid Level 4.4 Test 01/29/17 13:00 01/29/17 16:00 Blood Gas Puncture Site RT RADIAL Blood Gas Patient Temperature 98.6 Blood Gas HCO3 21 Blood Gas Base Excess -3.4 Blood Gas Oxygen Saturation 97 Arterial Blood pH 7.35 Arterial Blood Partial Pressure CO2 40 Arterial Blood Partial Pressure O2 141 Arterial Blood Oxygen Content 17.1 Arterial Blood Carboxyhemoglobin 0.8 Arterial Blood Methemoglobin 0.9 Blood Gas Hemoglobin 12.4 Oxygen Delivery Device VENTILATOR Blood Gas Ventilator Setting Blood Gas Inspired Oxygen 50 Blood Urea Nitrogen 13 Creatinine 0.98 Random Glucose 163 Total Protein 7.0 Albumin 3.0 Calcium Level 7.5 Phosphorus Level 2.3 Magnesium Level 1.6 Alkaline Phosphatase 80 Aspartate Amino Transf (AST/SGOT) 13 Alanine Aminotransferase (ALT/SGPT) 17 Total Bilirubin 0.5 Sodium Level 139 Potassium Level 3.7 Chloride Level 105 Carbon Dioxide Level 25.6 Anion Gap 8 Estimat Glomerular Filtration Rate 54 Lactic Acid Level 3.3 Vitamin B12 Level 1837 Date/Time Source Procedure Growth Status 01/29/17 10:40 Sputum Endotracheal Gram Stain Pending Received 01/29/17 10:40 Sputum Endotracheal Sputum Culture Pending Received Result Diagram: 01/29/17 0945 01/29/17 1600 Imaging 01/29/2017 MRI brain with contrast images reviewed by the undersigned. The study reveals recurrent neoplasm with significant contrast enhancement consistent with meningioma. The lesion is centered at the dorsum sella with impingement upon the optic chiasm and optic nerves as well as the pituitary stalk. The lesion abuts the anterior communicating artery and proximal anterior cerebral arteries. The lesion extends primarily towards the left planum sphenoidale and medial left frontotemporal lobes without significant overall mass effect. There is chronic appearing rather severe bifrontal encephalomalacia. Head CT 01/29/17 0000 Signed Impressions: Service Date/Time: Sunday, January 29, 2017 10:02 - CONCLUSION: 1. Bifrontal encephalomalacia. 2. No acute intracranial abnormality. 3. Nonspecific white matter changes Kiko Carson MD Chest X-Ray 01/29/17 0000 Signed Impressions: Service Date/Time: Sunday, January 29, 2017 10:36 - CONCLUSION: 1. Minimal left basilar density. 2. Adequate placement of endotracheal tube and left jugular central line Kiko Carson MD Brain MRI 01/29/17 0000 Signed Impressions: Service Date/Time: Sunday, January 29, 2017 11:06 - CONCLUSION: 1. Residual versus recurrent enhancing extra-axial mass is identified in the suprasellar cistern, along the planum sphenoidale and within the anterior cranial fossa. The largest component is in the left anterior cranial fossa causing mild to moderate effacement of the orbital frontal region of the frontal lobe. 2. No evidence of acute infarct, hemorrhage or edema. 3. Extensive bifrontal encephalomalacia status post craniotomy. 4. 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 Mor Mckinnon MD Assessment and Plan Assessment and Plan Impression: 1. Recurrent dorsum sella meningioma with impingement on the optic chiasm and nerves, anterior cervical arteries and anterior communicating artery as well as the pituitary stalk. The lesion extends primarily towards the left planum sphenoidale and cribriform plate with impingement on the inferior medial left frontal lobe, but no significant overall mass effect. Significant bilateral chronic frontal encephalomalacia. 2. New onset seizure 3. New-onset atrial fibrillation 4. History of Hypertension Plan: Continuing Dilantin for seizures. Neurology following. May wean off of sedation and ventilatory support as tolerated. No significant overall mass effect from the neoplasm at present. However impingement on the left medial frontotemporal parenchyma is a potential source of the new seizures. May begin antiplatelet agent as indicated for new onset atrial fibrillation as well as Lovenox for DVT prophylaxis. It is likely that the seizures will be well-controlled with anticonvulsant for the time being. I spoke with the patient's daughter on the telephone this evening and discussed general options of observation versus surgical intervention. Given the proximity to the optic nerves and chiasm, pituitary stalk and anterior cerebral arteries, radiation therapy and radiosurgery may be less optimal options. When the patient is more alert, treatment options for the recurrent meningioma cannot be discussed with the patient and her family, including observation, radiation therapy, and further surgical intervention. Peter Fabian MD Jan 29, 2017 19:07
--- NOTE | 2017-01-29 19:51 | ECHRPT ---
Indication: cva/tia CONCLUSIONS The left ventricular systolic function is low normal with an estimated ejection fraction in the rang e of 50- 55%. Normal left ventricular size. [id number] mitral valve regurgitation. No aortic valve regurgitation. There is trace tricuspid valve regurgitation. The pulmonary valve is not well visualized. BP: / HR: Rhythm: MEASUREMENTS (Male / Female) Normal Values Technical Quality:Technically difficult study 2D ECHO LV Diastolic Diameter PLAX 4.4 cm 4.2 - 5.9 / 3.9 - 5.3 cm LV Systolic Diameter PLAX 3.4 cm IVS Diastolic Thickness 1.8 cm 0.6 - 1.0 / 0.6 - 0.9 cm LVPW Diastolic Thickness 1.0 cm 0.6 - 1.0 / 0.6 - 0.9 cm LV Relative Wall Thickness 0.6 RV Internal Dim ED PLAX 2.1 cm M-MODE Aortic Root Diameter MM 3.0 cm LA Systolic Diameter MM 3.3 cm LA Ao Ratio MM 1.1 AV Cusp Separation MM 1.6 cm DOPPLER Mitral E Point Velocity 75.0 cm/s Mitral A Point Velocity 75.0 cm/s Mitral E to A Ratio 1.0 LV E' Lateral Velocity 8.8 cm/s Mitral E to LV E' Lateral Ratio 8.6 LV E' Septal Velocity 7.8 cm/s Mitral E to LV E' Septal Ratio 9.6 FINDINGS LEFT VENTRICLE The left ventricular systolic function is low normal with an estimated ejection fraction in the rang e of 50- 55%. Normal left ventricular size. RIGHT VENTRICLE Normal right ventricular size and systolic function. LEFT ATRIUM The left atrial size is normal. RIGHT ATRIUM The right atrial size is normal. ATRIAL SEPTUM Normal atrial septal thickness without atrial level shunting by limited color doppler interrogation. AORTA The aortic root and proximal ascending aorta are normal in size on limited imaging. MITRAL VALVE Structurally normal mitral valve. [id number] mitral valve regurgitation. AORTIC VALVE Trileaflet aortic valve. No aortic valve regurgitation. TRICUSPID VALVE Structurally normal tricuspid valve. There is trace tricuspid valve regurgitation. PULMONARY VALVE The pulmonary valve is not well visualized. VESSELS The inferior vena cava is normal in size. PERICARDIUM No pericardial effusion. Daniel Alberts MD (Electronically Signed) Final Date:29 January 2017 19:50
[2017-01-30] VITALS (14 sets, daily range): BP systolic 115–157; BP diastolic 57–72; PULSE 67–87; RESP 16–26; TEMP 98.7–101.3; O2SAT 92–100
[2017-01-30] MEDS: SODIUM CHLOR 0.9% 1000 ML INJ 1,000 ML IV SCH ×2 (01:30→17:00)
[2017-01-30] MEDS: PROPOFOL 1000 MG/100 ML IV PRN (02:48)
[2017-01-30] MEDS: INSULIN ASPART SUPPLEMENTAL SCALE SQ SCH ×6 (03:00→23:00)
[2017-01-30] MEDS: FOSPHENYTOIN SODIUM 100 MG PE/2 ML VIAL IV SCH ×3 (06:11→21:28)
[2017-01-30 06:15] LABS: HEMATOCRIT 32.1 % (35.0-46.0); MEAN CORPUSCULAR HEMOGLOBIN 30.1 PG (27.0-34.0); MEAN CORPUSCULAR HGB CONC 34.5 % (32.0-36.0); PLATELET COUNT 251 TH/MM3 (150-450); RED BLOOD COUNT 3.69 MIL/MM3 (4.00-5.30); RED CELL DISTRIBUTION WIDTH 12.8 % (11.6-17.2); REVIEW FLAG FINAL
[2017-01-30 06:48] LABS: BICARBONATE 22.8 MEQ/L (21.0-32.0); POTASSIUM 3.1 MEQ/L (3.5-5.1)
[2017-01-30] MEDS: ICU - POTASSIUM CHLORIDE/AQUEOUS SOLN 40 MEQ/100 ML IVPB IV PRN ×2 (06:52→09:20)
[2017-01-30] MEDS: RESP: ALBUTEROL 2.5 MG/IPRATROPIUM 0.5 MG NEB (PRN) NEB (07:23)
--- NOTE | 2017-01-30 07:34 | HHI.CCPN ---
Subjective Remarks/Hospital Course Patient is a 71-year-old female with past medical history significant for a left frontal meningioma resection in 2001 with residual tumor (MRI showing meningioma 5.4x4.4x1.6cm), hypertension, dyslipidemia who was found to have a 5-10 minutes witnessed tonic-clonic seizure today. EMS was called and on the arrival patient had another two-minute tonic-clonic seizures and received 2 mg Ativan. In the ER was evaluated by Dr. Harper. Critical care medicine was consulted for new onset seizures and postictal encephalopathy. I immediately evaluated the patient in the ED. Patient is difficult to arouse even though she opens eyes to painful stimuli immediately goes back to sleep. Withdraws extremities localizes with left upper extremity. Right upper extremity appeared weaker. Her chest exam revealed bilateral coarse wheezes and crackles, airway protection questionable. A stat CT showed bifrontal encephalomalacia but no acute findings. Patient was emergently moved to the ICU and I intubated her for airway protection. Also placed left IJ central line. Case discussed extensively with Dr. Osman neurology. 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 With history of meningioma Dr. Osman does not want to do empiric TPA. We will get a stat MRI of the brain. Daughter was updated. Patient has a history of questionable TIA about 4 years ago. I have ordered Cerebyx loading dose 1 g and continued Cerebyx at 100 mg every 8 hours. Stat EEG also pending at this time. I'm also given a history that patient has chronic Xanax use 0.25 mg daily at bedtime for insomnia. She had ran out of Xanax since 01/26/17. Patient was also found to be in atrial fibrillation with rapid ventricular response which is new onset. Post intubation and sedation rate controlled patient remains in A. fib SUBJ 01/30: Patient remains intubated sedated. Remains in atrial fibrillation, rate controlled. Cleared by neurosrugery for antiplatelet therapy. Will check again with Dr. Fabian and start anticoagulation with Lovenox and transition to coumadin. [id number] score is 4. Patient wakes up easily follows commands. Plan for SBT with possible extubation, No further seizures Objective Vital Signs Date Time Temp Pulse Resp B/P (MAP) Pulse Ox O2 Delivery O2 Flow Rate FiO2 12/12/17 06:00 83 01/30/17 04:00 100 40 01/30/17 04:00 100.0 16 115/57 (76) 01/29/17 11:30 Mechanical Ventilator 01/29/17 09:30 3.00 Intake and Output 01/30/17 01/30/17 01/31/17 08:00 16:00 00:00 Intake Total 1488 ml Output Total 450 ml Balance 1038 ml Result Diagram: 01/30/17 0525 01/30/17 0525 Other Results Laboratory Tests Test 01/29/17 13:00 Blood Gas Puncture Site RT RADIAL Blood Gas Patient Temperature 98.6 Blood Gas HCO3 21 mmol/L (22-26) Blood Gas Base Excess -3.4 mmol/L (-2-2) Blood Gas Oxygen Saturation 97 % (90-100) Arterial Blood pH 7.35 (7.380-7.420) Arterial Blood Partial Pressure CO2 40 mmHg (38-42) Arterial Blood Partial Pressure O2 141 mmHg (61-120) Arterial Blood Oxygen Content 17.1 Vol % (12.0-20.0) Arterial Blood Carboxyhemoglobin 0.8 % (0-4) Arterial Blood Methemoglobin 0.9 % (0-2) Blood Gas Hemoglobin 12.4 G/DL (12.0-16.0) Oxygen Delivery Device VENTILATOR Blood Gas Ventilator Setting Blood Gas Inspired Oxygen 50 % Imaging CT of the brain shows bifrontal encephalomalacia MRI pending at this time Objective Remarks GENERAL: 81-year-old female intubated sedated wakes up easily SKIN:Warm/dry. HEAD: Atraumatic. Normocephalic. EYES: Pupils equal and round at 2mm bilaterally. ENT: No nasal bleeding or discharge. NECK: Trachea midline. No JVD. CARDIOVASCULAR: Atrial fibrillation with controlled rate. No murmur appreciated. RESPIRATORY: Coarse breath sounds bilaterally. Bilateral minimal expiratory wheezing GASTROINTESTINAL: Abdomen soft, non-tender, nondistended. MUSCULOSKELETAL: No obvious deformities. No clubbing. No cyanosis. No edema. NEUROLOGICAL: Patient opens eyes. Follows commands today. Moving all 4 extremities A/P Assessment and Plan NEURO: New onset seizures with postictal state Post ictal Gómez's paralysis Acute encephalopathy Large frontal meningioma - Ativan 2 mg IV every 4 hours when necessary for seizures - EEG 01/30: Bilateral structural abnormalities right more than left with some frontal sharp waves, but no definitive paroxysmal discharge present. No ictal pattern. - s/p Cerebyx loading dose 1 g and continue 100 mg every 8 hours - Hold propofol for SBT - CT of the head did not show any acute changes - MRI of the brain-Recurrent dorsum sella meningioma with impingement on the optic chiasm and nerves, anterior cervical arteries and anterior communicating artery as well as the pituitary stalk. Could be potential trigger for Sz per Dr. Fabian - With history of large meningioma Dr. Osman does not want to give empiric TPA - Aspirin 81 mg daily - Neurosurgery Dr. Fabian. Discussed extensively with neurology Dr. Osman and Dr. Fabian - MRI 05/12/16 showing meningioma 5.4x4.4x1.6cm RESP: Acute respiratory failure Aspiration pneumonitis - Intubated for airway protection - Start SBT with potential extubation - Ventilator bundle, DuoNeb every 6 hours when necessary - F/U sputum culture CV: New onset atrial fibrillation with RVR Permissive hypertension - s/p Normal saline IV fluids 2L bolus and 125 ml per hour - Echo estimated ejection fraction in the range of 50- 55%. Normal left ventricular size. - Target systolic blood pressure <160-180. IV labetolol, hydralazine to keep SBP <160 - Cardizem if needed for heart rate control. Start Coreg 6.25 BID. Resume lisinopril - Started aspirin 81 mg daily given hx of possble TIA - Start Lovenox 80 mg sq q12. cleared by Dr. Fabian. Transition to coumadin - Discussed with Dr. Osman GI: - NPO except meds, IV famotidine - Bedside swallow eval after extubation : Acute kidney injury most likely from dehydration - Continue aggressive hydration as above, reduce maintenance fluid to 50 mL per hour. Monitor renal function closely. Viera catheter. ID: - Monitor for infection especially aspiration pneumonia - F/u sputum culture. No antibiotics at this time - Blood cultures ordered for fever HEME: Leukocytosis - Monitor CBC, CMP, coags - Leukocytosis most likely related to stress ENDO: Hypokalemia Hyperglycemia - Electrolyte replacement per protocol - Sliding-scale insulin - Hemoglobin A1c-6 PROPH: - Bilateral lower extremity SCDs. Lovenox 80 mg sq q12. IV famotidine for GI prophylaxis LINES: - Left IJ central line placed-maintain for 24 for aggressive K replacement. DC Viera Level 3 Juan Cook MD Jan 30, 2017 07:34
[2017-01-30] MEDS ORDERED: MAGNESIUM SULFATE 1 GM PREMIX 100 ML IV ONE (08:00)
[2017-01-30] MEDS ORDERED: ENOXAPARIN SODIUM 80 MG/0.8 ML SYRINGE SQ SCH (08:00)
[2017-01-30] MEDS: LISINOPRIL 5 MG TAB PO SCH (09:12)
[2017-01-30] MEDS: ASPIRIN 81 MG CHEW TAB CHEW SCH (09:12)
[2017-01-30] MEDS: PRAVASTATIN SOD 20 MG TAB PO SCH (09:12)
[2017-01-30] MEDS: CARVEDILOL 6.25 MG TAB PO SCH ×2 (09:13→21:11)
[2017-01-30] MEDS: ACETAMINOPHEN 325 MG TAB PO PRN ×2 (09:13→15:57)
--- NOTE | 2017-01-30 10:26 | RADRPT ---
EXAM DATE/TIME: 01/30/2017 09:12 [facility] COMPARISON: No previous studies available for comparison. INDICATIONS : Left arm swelling and pain after having a seizure and falling. MEDICAL HISTORY : Hypertension. New onset of A-fib. SURGICAL HISTORY : 2001 frontal lobe mengioma ENCOUNTER: Subsequent ACUITY: 2 days PAIN SCORE: 7/10 LOCATION: Left Forearm. FINDINGS: Two view examination of the left forearm demonstrates no evidence of fracture or dislocation. Bony m ineralization is normal. The soft tissue structures are intact. Magnified views of the wrist show osseous cyst at the base of the first metacarpal and in a few carpa l bones. Questionable fracture through the distal aspect of the first metacarpal with intra-articular extension versus Mach line from the regional sesamoids. Only identified on one projection. CONCLUSION: 1. Forearm is intact. 2. However, possible fracture through the distal aspect of the first metacarpal versus Mach lines sec ondary to the regional sesamoid bones. If patient does not complain of any discomfort in this locatio n, no further workup is necessary. Otherwise, dedicated views of the thumb would be suggested. 3. Benign-appearing osseous cyst at the base of the first metacarpal and in scattered carpal bones wi th regional degenerative changes. Dawson Ballesteros MD on January 30, 2017 at 10:14 Board Certified Radiologist. This report was verified electronically.
--- NOTE | 2017-01-30 10:27 | RADRPT ---
EXAM DATE/TIME: 01/30/2017 09:41 [facility] COMPARISON: No previous studies available for comparison. INDICATIONS : Left shoulder pain after having a seizure and falling. MEDICAL HISTORY : Hypertension. New onset of A-fib. SURGICAL HISTORY : 2001 frontal lobe mengioma ENCOUNTER: Subsequent ACUITY: 2 days PAIN SCORE: 7/10 LOCATION: Left Shoulder. FINDINGS: Examination of the left shoulder demonstrates no evidence of fracture or dislocation.. Bone minerali zation is normal. The acromioclavicular joint is intact. No foreign body is identified. CONCLUSION: No fracture. Dawson Ballesteros MD on January 30, 2017 at 10:24 Board Certified Radiologist. This report was verified electronically.
--- NOTE | 2017-01-30 14:18 | RADRPT ---
EXAM DATE/TIME: 01/30/2017 12:05 [facility] COMPARISON: No previous studies available for comparison. INDICATIONS : Left shoulder pain post seizure yesterday. MEDICAL HISTORY : Hypertension. SURGICAL HISTORY : frontal meningioma ENCOUNTER: Subsequent ACUITY: 2 day PAIN SCORE: 3/10 LOCATION: Left shoulder TECHNIQUE: Multiplanar, multisequence MRI examination was performed without contrast. FINDINGS: ROTATOR CUFF: The supraspinatus, infraspinatus, subscapularis, and teres minor tendons are intact. There is mild th inning involving the distal 1 cm the supraspinatus insertion consistent with tendinopathy. There is s ignificant fluid in the subacromial subdeltoid bursa consistent with bursitis LABRUM: Labrum is within normal limits. MARROW/CARTILAGE: Bone marrow signal is homogeneous. Glenohumeral joint articular cartilage is within normal limits. OTHER: Acromioclavicular joint is within normal limits. Proximal biceps tendon is partially torn to the upp er groove. Sprain of the deltoid muscle CONCLUSION: Tendinopathy and thinning involving the distal 1 cm of the supraspinatus tendon. There is a moderate joint effusion and marked fluid in the subacromion subdeltoid bursa. Deltoid muscle sprain. Vickey Villanueva MD on January 30, 2017 at 14:13 Board Certified Radiologist. This report was verified electronically.
--- NOTE | 2017-01-30 14:41 | MB ---
cc: OTONIEL MCGEE DATE OF CONSULTATION 01/30/2017 REASON FOR CONSULTATION Ms. Monreal is an 81-year-old female with a history of meningioma resection in 2001 with residual tumor on MRI in April of this year. She was admitted with a tonic clonic seizure. She was thought to have atrial fibrillation. She was intubated for airway protection. She has a not had any previous history of atrial fibrillation. She has mild shortness of breath. She is now extubated and in sinus rhythm. PAST MEDICAL HISTORY Positive for: 1. Meningioma resection in 2001 2. Hypercholesterolemia MEDICATIONS Include: 1. Xanax 2. Hydrochlorothiazide 3. Lisinopril ALLERGIES INCLUDE PENICILLIN. SOCIAL HISTORY The patient does not smoke, does not drink alcohol. She is accompanied by her family. FAMILY HISTORY Negative for heart disease. REVIEW OF SYSTEMS Otherwise negative. PHYSICAL EXAMINATION VITAL SIGNS: Blood pressure 116/57, pulse 67. HEAD, EYES, EARS, NOSE, AND THROAT: 2+carotid upstrokes. LUNGS: Clear. HEART: Regular with no murmur, gallop, rub. ABDOMEN: Soft, no bruits. EXTREMITIES: Without edema. Good distal pulses. NEUROLOGIC: Grossly nonfocal. EKG was reviewed and showed a normal sinus rhythm with frequent PAC's and nonspecific ST-T changes. LABORATORY DATA The hemoglobin is 11.1, potassium 3.1, creatinine 1.0, AST, ALT normal. TSH 1.7. DIAGNOSIS 1. New-onset seizures. 2. Very frequent atrial ectopy. 3. Acute respiratory failure. 4. Renal insufficiency 5. Meningioma DISPOSITION Ms. Monreal will be monitored on telemetry. I will review all her rhythm strips with Dr. Cook to make sure that she has atrial fibrillation versus sinus rhythm with frequent PACs. If atrial fibrillation is confirmed, she will need to be fully anticoagulated and I recommend to start Eliquis 5 mg twice a day to decrease the chance of stroke. She is undergoing neurologic and neurosurgery evaluation. Her echocardiogram showed preserved left ventricular systolic function and no significant valvular disease. I will follow her for cardiology during her hospitalization. I will also see her back for followup in our office after discharge. This was discussed with the patient and her family. MD DACIA Sorensen/OLI /10:45 AM /2:07 PM [place]
[2017-01-30] MEDS ORDERED: LABETALOL HCL 100 MG/20 ML VIAL IV PUSH PRN (16:00)
[2017-01-30] MEDS ORDERED: hydrALAZINE HCL 20 MG/ML VIAL IV PUSH PRN (16:00)
--- NOTE | 2017-01-30 16:03 | RADRPT ---
EXAM DATE/TIME: 01/30/2017 13:57 [place] COMPARISON: No previous studies available for comparison. INDICATIONS : Left hand swelling. MEDICAL HISTORY : Hypertension. SURGICAL HISTORY : 2002 frontal lobe mengioma ENCOUNTER: Initial ACUITY: 2 days PAIN SCORE: Non-responsive. LOCATION: Left hand. FINDINGS: Two view examination of the left hand demonstrates generalized soft tissue swelling. Bony structures are intact. There is mild arthropathy of the interphalangeal joints characteristic of post or arthritis. CONCLUSION: 1. Generalized soft tissue swelling 2. Mild arthropathy of the interphalangeal joints. 3. No evidence of acute fracture or dislocation. Mor Mckinnon MD on January 30, 2017 at 15:58 Board Certified Radiologist. This report was verified electronically.
[2017-01-30 16:13] LABS: POTASSIUM 3.7 MEQ/L (3.5-5.1)
--- NOTE | 2017-01-30 18:45 | PD.CONS ---
cc: Shun Schultz MD [facility] Service Orthopedic Surgeons Consult Requested By Dr. Cook Reason for Consult Deltoid strain/contusion Primary Care Physician Leah Borja MD Admission Diagnosis Status epilepticus, afib RVR Diagnoses: (1) Left shoulder strain (2) New onset seizure Diagnosis: Principal (3) Acute encephalopathy Diagnosis: Principal (4) Todds paralysis vs acute CVA Diagnosis: Principal (5) Acute respiratory failure Diagnosis: Principal (6) Atrial fibrillation with RVR Diagnosis: Principal (7) Possible aspiration Diagnosis: Principal (8) History of resection of meningioma Diagnosis: Principal Chief Complaint: Seizures History of Present Illness 81-year-old female who is hard of hearing was admitted recently with a history of seizures. Patient does have a history of craniotomy for meningioma. She has been evaluated by neurology as well as neurosurgery. She apparently fell and did complain of left shoulder pain. X-rays were completed which did not reveal any evidence of fracture. A subsequent MRI scan revealed tendinopathy of the rotator cuff with fluid in the subdeltoid bursa and evidence of a deltoid strain. Orthopedic consultation was therefore requested. The patient is awake and alert. She is hard of hearing. She has been in a sling which provides some relief. Review of Systems Reviewed and well outlined in the chart Past Family Social History Past Medical History Allergies: Coded Allergies: penicillin G (Unverified Allergy, Mild, HIVES, 01/29/17) Past Medical History MRI 05/12/16 showing meningioma 5.4x4.4x1.6cm Dyslipidemia Hypertension Anxiety New onset A. fib Past Surgical History Frontal meningioma resection in 2001 Reported Medications Chlorothiazide 250 Mg Tab 250 Mg PO DAILY Xanax (Alprazolam) 0.25 Mg Tab 0.25 Mg PO Q6H PRN Lisinopril 5 Mg Tab 5 Mg PO DAILY Zocor (Simvastatin) 10 Mg Tab 10 Mg PO DAILY Active Ordered Medications Reviewed Family History No family history of brain tumors or seizures Social History No alcohol or tobacco use Allergies: Coded Allergies: penicillin G (Unverified Allergy, Mild, HIVES, 01/29/17) Active Ordered Medications Current Medications Medications (Trade) Dose Ordered Sig/Josefina Route Start Time Stop Time Status Last Admin (Brethine Inj) 1 mg UNSCH PRN SQ 01/29/17 10:15 (Cerebyx Inj) 100 mgpe Q8HR IV 01/29/17 14:00 01/30/17 14:19 Miscellaneous Information D/C ICU ELECTROLYTE ORDERS... UNSCH PRN .XX 01/29/17 12:00 Miscellaneous Information ICU - CALL ORDERING PHYSIC... UNSCH PRN .XX 01/29/17 12:00 Potassium Chloride 100 ml @ 25 mls/hr UNSCH PRN IV 01/29/17 12:00 01/30/17 09:20 (K-Lyte Cl Eff) 50 meq UNSCH PRN PO 01/29/17 12:00 Potassium Chloride 100 ml @ 50 mls/hr UNSCH PRN IV 01/29/17 12:00 01/29/17 14:32 Magnesium Sulfate 4 gm/Sodium Chloride 108 ml @ 54 mls/hr UNSCH PRN IV 01/29/17 12:00 Magnesium Sulfate 2 gm/Sodium Chloride 104 ml @ 52 mls/hr UNSCH PRN IV 01/29/17 12:00 (Mag-Ox) 800 mg UNSCH PRN PO 01/29/17 12:00 Sodium Phosphate 30 mmol/Sodium Chloride 260 ml @ 43.333 mls/ hr UNSCH PRN IV 01/29/17 12:00 (K-Phos) 2,000 mg UNSCH PRN PO 01/29/17 12:00 Potassium Phosphate 30 mmol/ Sodium Chloride 260 ml @ 43.333 mls/ hr UNSCH PRN IV 01/29/17 12:00 Sodium Chloride 1,000 ml @ 40 mls/hr Q24H IV 01/29/17 12:15 01/30/17 17:00 (NovoLOG SUPPLEMENTAL SCALE) 1 Q4H SQ 01/29/17 15:00 01/30/17 13:00 (Ativan Inj) 1 mg Q4H PRN IV PUSH 01/29/17 13:00 01/29/17 13:30 (Aspirin Chew) 81 mg DAILY CHEW 01/30/17 09:00 01/30/17 09:12 (Duoneb Neb) 1 ampule Q4HR NEB PRN NEB 01/29/17 13:15 01/30/17 07:23 Propofol 100 ml @ 13.554 mls/ hr TITRATE PRN IV 01/29/17 14:00 01/30/17 02:48 (D50w (Vial) Inj) 50 ml UNSCH PRN IV PUSH 01/29/17 14:15 (Glucagon Inj) 1 mg UNSCH PRN OTHER 01/29/17 14:15 (Tylenol) 650 mg Q6H PRN PO 01/30/17 01:30 01/30/17 15:57 (Prinivil) 5 mg DAILY PO 01/30/17 09:00 01/30/17 09:12 (Pravachol) 20 mg DAILY PO 01/30/17 09:00 01/30/17 09:12 (Coreg) 6.25 mg Q12HR PO 01/30/17 09:00 01/30/17 09:13 (Apresoline Inj) 10 mg Q4H PRN IV PUSH 01/30/17 16:00 (Trandate Inj) 10 mg Q4H PRN IV PUSH 01/30/17 16:00 (Lovenox Inj) 40 mg DAILY SQ 01/31/17 09:00 Reported Meds & Active Scripts Active Reported Chlorothiazide 250 Mg Tab 250 Mg PO DAILY Xanax (Alprazolam) 0.25 Mg Tab 0.25 Mg PO Q6H PRN Lisinopril 5 Mg Tab 5 Mg PO DAILY Zocor (Simvastatin) 10 Mg Tab 10 Mg PO DAILY Physical Exam Vital Signs Vital Signs Date Time Temp Pulse Resp B/P (MAP) Pulse Ox O2 Delivery O2 Flow Rate FiO2 01/30/17 16:57 18 01/30/17 16:00 76 01/30/17 16:00 98.7 76 18 127/72 (90) 98 01/30/17 13:00 97 Nasal Cannula 2.00 01/30/17 12:00 69 01/30/17 12:00 98.8 69 16 142/65 (90) 96 01/30/17 08:38 99 Nasal Cannula 3.00 01/30/17 08:00 99.7 87 16 157/69 (98) 96 01/30/17 08:00 87 01/30/17 07:45 96 Nasal Cannula 4.00 01/30/17 07:45 92 Nasal Cannula 3 01/30/17 07:23 100 40 01/30/17 07:15 40 01/30/17 07:10 40 01/30/17 06:00 83 01/30/17 04:00 100 40 01/30/17 04:00 100.0 67 16 115/57 (76) 100 01/30/17 04:00 67 01/30/17 04:00 40 01/30/17 02:00 74 01/30/17 00:27 100 40 01/30/17 00:00 40 01/30/17 00:00 101.3 78 26 126/60 (82) 100 01/30/17 00:00 78 01/29/17 22:00 73 01/29/17 21:00 150/67 (94) 01/29/17 20:58 100 40 01/29/17 20:00 99.4 77 24 190/77 (114) 100 01/29/17 20:00 72 01/29/17 20:00 40 Physical Exam The left upper extremity is in a sling. The left shoulder has no overlying skin change. There is no significant swelling. There is no specific palpable tenderness. She does have pain with attempts at range of motion which is limited by pain. There is also pain with passive range of motion. She has satisfactory mobility of the elbow and wrist as well as the fingers. She has good capillary refill and sensation. Laboratory Laboratory Tests Test 01/30/17 05:25 01/30/17 15:00 White Blood Count 14.0 Red Blood Count 3.69 Hemoglobin 11.1 Hematocrit 32.1 Mean Corpuscular Volume 87.0 Mean Corpuscular Hemoglobin 30.1 Mean Corpuscular Hemoglobin Concent 34.5 Red Cell Distribution Width 12.8 Platelet Count 251 Mean Platelet Volume 8.9 Blood Urea Nitrogen 13 Creatinine 0.98 Random Glucose 123 Calcium Level 7.9 Sodium Level 141 Potassium Level 3.1 3.7 Chloride Level 109 Carbon Dioxide Level 22.8 Anion Gap 9 Estimat Glomerular Filtration Rate 54 Lactic Acid Level 2.1 Magnesium Level 1.5 2.0 Phenytoin (Dilantin) Level 15.3 Date/Time Source Procedure Growth Status 01/30/17 15:07 Blood Peripheral Aerobic Blood Culture Pending Received 01/30/17 15:07 Blood Peripheral Anaerobic Blood Culture Pending Received 01/29/17 18:00 Sputum Endotracheal Gram Stain - Final Resulted 01/29/17 18:00 Sputum Endotracheal Sputum Culture - Preliminary IMMATURE GROWTH - REINCUBATE Resulted Result Diagram: 01/30/17 0525 01/30/17 1500 Imaging Last 48 hours Impressions Shoulder X-Ray 01/30/17 0000 Signed Impressions: Service Date/Time: Monday, January 30, 2017 09:41 - CONCLUSION: No fracture. Dawson Ballesteros MD Shoulder MRI 01/30/17 0000 Signed Impressions: Service Date/Time: Monday, January 30, 2017 12:05 - CONCLUSION: Tendinopathy and thinning involving the distal 1 cm of the supraspinatus tendon. There is a moderate joint effusion and marked fluid in the subacromion subdeltoid bursa. Deltoid muscle sprain. Vickey Villanueva MD Radius/Ulna X-Ray 01/30/17 0000 Signed Impressions: Service Date/Time: Monday, January 30, 2017 09:12 - CONCLUSION: 1. Forearm is intact. 2. However, possible fracture through the distal aspect of the first metacarpal versus Mach lines secondary to the regional sesamoid bones. If patient does not complain of any discomfort in this location, no further workup is necessary. Otherwise, dedicated views of the thumb would be suggested. 3. Benign-appearing osseous cyst at the base of the first metacarpal and in scattered carpal bones with regional degenerative changes. Dawson Ballesteros MD Hand X-Ray 01/30/17 0000 Signed Impressions: Service Date/Time: Monday, January 30, 2017 13:57 - CONCLUSION: 1. Generalized soft tissue swelling 2. Mild arthropathy of the interphalangeal joints. 3. No evidence of acute fracture or dislocation. Mor Mckinnon MD Head CT 01/29/17 0000 Signed Impressions: Service Date/Time: Sunday, January 29, 2017 10:02 - CONCLUSION: 1. Bifrontal encephalomalacia. 2. No acute intracranial abnormality. 3. Nonspecific white matter changes Kiko Carson MD Chest X-Ray 01/29/17 0000 Signed Impressions: Service Date/Time: Sunday, January 29, 2017 10:36 - CONCLUSION: 1. Minimal left basilar density. 2. Adequate placement of endotracheal tube and left jugular central line Kiko Carson MD Chest X-Ray 01/29/17 0000 Signed Impressions: Service Date/Time: Sunday, January 29, 2017 09:54 - CONCLUSION: Left basilar density. Kiko Carson MD Brain MRI 01/29/17 0000 Signed Impressions: Service Date/Time: Sunday, January 29, 2017 11:06 - CONCLUSION: 1. Residual versus recurrent enhancing extra-axial mass is identified in the suprasellar cistern, along the planum sphenoidale and within the anterior cranial fossa. The largest component is in the left anterior cranial fossa causing mild to moderate effacement of the orbital frontal region of the frontal lobe. 2. No evidence of acute infarct, hemorrhage or edema. 3. Extensive bifrontal encephalomalacia status post craniotomy. 4. 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 Mor Mckinnon MD Assessment & Plan Problem List: (1) Left shoulder strain ICD Codes: S46.912A - Strain of unspecified muscle, fascia and tendon at shoulder and upper arm level, left arm, initial encounter (2) Atrial fibrillation with RVR ICD Codes: I48.91 - Unspecified atrial fibrillation (3) History of resection of meningioma ICD Codes: Z98.890 - Other specified postprocedural states (4) New onset seizure ICD Codes: R56.9 - Unspecified convulsions Assessment and Plan The findings were discussed. Recommendations are for nonoperative management with use of the sling for comfort, progressive active and passive range of motion exercises with physical therapy as well as use of heat and ice as needed. She should anticipate slow and gradual improvement over the next several weeks. She is welcome to contact the undersigned on an outpatient basis if she remains symptomatic. Shun Schultz MD Jan 30, 2017 18:45
--- NOTE | 2017-01-30 20:38 | HHI.PR ---
Review/Management Diagnosis focal seizure with secondary generalization and post ictal Todds paralysis. No evidence for cva recurrent meningioma Plan continue cerebyx---change to po dilantin when more alert If she has no afib, agree with dc of full anticoagulation and continue asa Diagnosis/Plan: Subjective Subjective Comments No acute events reported extubated and more alert today with improving speech Active Medications Current Medications Medications (Trade) Dose Ordered Sig/Josefina Route Start Time Stop Time Status Last Admin (Brethine Inj) 1 mg UNSCH PRN SQ 01/29/17 10:15 (Cerebyx Inj) 100 mgpe Q8HR IV 01/29/17 14:00 01/30/17 14:19 Miscellaneous Information D/C ICU ELECTROLYTE ORDERS... UNSCH PRN .XX 01/29/17 12:00 Miscellaneous Information ICU - CALL ORDERING PHYSIC... UNSCH PRN .XX 01/29/17 12:00 Potassium Chloride 100 ml @ 25 mls/hr UNSCH PRN IV 01/29/17 12:00 01/30/17 09:20 (K-Lyte Cl Eff) 50 meq UNSCH PRN PO 01/29/17 12:00 Potassium Chloride 100 ml @ 50 mls/hr UNSCH PRN IV 01/29/17 12:00 01/29/17 14:32 Magnesium Sulfate 4 gm/Sodium Chloride 108 ml @ 54 mls/hr UNSCH PRN IV 01/29/17 12:00 Magnesium Sulfate 2 gm/Sodium Chloride 104 ml @ 52 mls/hr UNSCH PRN IV 01/29/17 12:00 (Mag-Ox) 800 mg UNSCH PRN PO 01/29/17 12:00 Sodium Phosphate 30 mmol/Sodium Chloride 260 ml @ 43.333 mls/ hr UNSCH PRN IV 01/29/17 12:00 (K-Phos) 2,000 mg UNSCH PRN PO 01/29/17 12:00 Potassium Phosphate 30 mmol/ Sodium Chloride 260 ml @ 43.333 mls/ hr UNSCH PRN IV 01/29/17 12:00 Sodium Chloride 1,000 ml @ 40 mls/hr Q24H IV 01/29/17 12:15 01/30/17 17:00 (NovoLOG SUPPLEMENTAL SCALE) 1 Q4H SQ 01/29/17 15:00 01/30/17 19:38 (Ativan Inj) 1 mg Q4H PRN IV PUSH 01/29/17 13:00 01/29/17 13:30 (Aspirin Chew) 81 mg DAILY CHEW 01/30/17 09:00 01/30/17 09:12 (Duoneb Neb) 1 ampule Q4HR NEB PRN NEB 01/29/17 13:15 01/30/17 07:23 Propofol 100 ml @ 13.554 mls/ hr TITRATE PRN IV 01/29/17 14:00 01/30/17 02:48 (D50w (Vial) Inj) 50 ml UNSCH PRN IV PUSH 01/29/17 14:15 (Glucagon Inj) 1 mg UNSCH PRN OTHER 01/29/17 14:15 (Tylenol) 650 mg Q6H PRN PO 01/30/17 01:30 01/30/17 15:57 (Prinivil) 5 mg DAILY PO 01/30/17 09:00 01/30/17 09:12 (Pravachol) 20 mg DAILY PO 01/30/17 09:00 01/30/17 09:12 (Coreg) 6.25 mg Q12HR PO 01/30/17 09:00 01/30/17 09:13 (Apresoline Inj) 10 mg Q4H PRN IV PUSH 01/30/17 16:00 (Trandate Inj) 10 mg Q4H PRN IV PUSH 01/30/17 16:00 (Lovenox Inj) 40 mg DAILY SQ 01/31/17 09:00 Allergies Allergies Coded Allergies penicillin G (Unverified Allergy, Mild, HIVES, 01/29/17) Exam I&O / VS 01/30/17 01/30/17 01/31/17 15:00 23:00 07:00 Intake Total 300 ml 600 ml Output Total 425 ml Balance 300 ml 175 ml Intake Oral 600 ml IV Total 300 ml Output Urine Total 425 ml # Bowel Movements 0 Vital Signs Date Time Temp Pulse Resp B/P (MAP) Pulse Ox O2 Delivery O2 Flow Rate FiO2 01/30/17 16:57 18 01/30/17 16:00 76 01/30/17 16:00 98.7 76 18 127/72 (90) 98 01/30/17 13:00 97 Nasal Cannula 2.00 01/30/17 12:00 69 01/30/17 12:00 98.8 69 16 142/65 (90) 96 01/30/17 08:38 99 Nasal Cannula 3.00 01/30/17 08:00 99.7 87 16 157/69 (98) 96 01/30/17 08:00 87 01/30/17 07:45 96 Nasal Cannula 4.00 01/30/17 07:45 92 Nasal Cannula 3 01/30/17 07:23 100 40 01/30/17 07:15 40 01/30/17 07:10 40 01/30/17 06:00 83 01/30/17 04:00 100 40 01/30/17 04:00 100.0 67 16 115/57 (76) 100 01/30/17 04:00 67 01/30/17 04:00 40 01/30/17 02:00 74 01/30/17 00:27 100 40 01/30/17 00:00 40 01/30/17 00:00 101.3 78 26 126/60 (82) 100 01/30/17 00:00 78 01/29/17 22:00 73 01/29/17 21:00 150/67 (94) 01/29/17 20:58 100 40 Exam Comments alert, follow commands CN intact grossly MOTOR--generalized weakness, nonfocal Objective Radiology Results MRI brain shows recurrent suprasellar meningioma , no evidence for stroke Micro and Labs Laboratory Tests Test 01/30/17 05:25 01/30/17 15:00 White Blood Count 14.0 Red Blood Count 3.69 Hemoglobin 11.1 Hematocrit 32.1 Mean Corpuscular Volume 87.0 Mean Corpuscular Hemoglobin 30.1 Mean Corpuscular Hemoglobin Concent 34.5 Red Cell Distribution Width 12.8 Platelet Count 251 Mean Platelet Volume 8.9 Blood Urea Nitrogen 13 Creatinine 0.98 Random Glucose 123 Calcium Level 7.9 Sodium Level 141 Potassium Level 3.1 3.7 Chloride Level 109 Carbon Dioxide Level 22.8 Anion Gap 9 Estimat Glomerular Filtration Rate 54 Lactic Acid Level 2.1 Magnesium Level 1.5 2.0 Phenytoin (Dilantin) Level 15.3 Date/Time Source Procedure Growth Status 01/30/17 15:07 Blood Peripheral Aerobic Blood Culture Pending Received 01/30/17 15:07 Blood Peripheral Anaerobic Blood Culture Pending Received 01/29/17 18:00 Sputum Endotracheal Gram Stain - Final Resulted 01/29/17 18:00 Sputum Endotracheal Sputum Culture - Preliminary IMMATURE GROWTH - REINCUBATE Resulted Diagnostic Tests EEG--left sided sharp activity Angelo Osman PhD Jan 30, 2017 20:38
[2017-01-31] VITALS (11 sets, daily range): BP systolic 113–166; BP diastolic 51–74; PULSE 65–91; RESP 13–26; TEMP 98.3–99.5; O2SAT 95–98
[2017-01-31] MEDS: ACETAMINOPHEN 325 MG TAB PO PRN ×2 (00:11→08:26)
[2017-01-31] MEDS: INSULIN ASPART SUPPLEMENTAL SCALE SQ SCH ×6 (03:00→23:00)
[2017-01-31] MEDS: KETOROLAC TROMETHAMINE 60 MG/2 ML (IM) VIAL IM PRN ×2 (03:14→22:37)
[2017-01-31] MEDS: FOSPHENYTOIN SODIUM 100 MG PE/2 ML VIAL IV SCH (05:38)
[2017-01-31 06:33] LABS: ALKALINE PHOSPHATASE 56 U/L (45-117); ALT (GPT) 14 U/L (10-53); ANION GAP 8 MEQ/L (5-15); AST (GOT) 19 U/L (15-37); BICARBONATE 22.9 MEQ/L (21.0-32.0); BLOOD UREA NITROGEN 16 MG/DL (7-18); CHLORIDE 107 MEQ/L (98-107); GLOMERULAR FILTRATION RATE 57 ML/MIN (>89); MAGNESIUM 1.8 MG/DL (1.5-2.5); POTASSIUM 3.4 MEQ/L (3.5-5.1); SODIUM (NA) 138 MEQ/L (136-145); TOTAL BILIRUBIN ADULT 0.7 MG/DL (0.2-1.0)
[2017-01-31] MEDS: ICU - POTASSIUM CHLORIDE/AQUEOUS SOLN 40 MEQ/100 ML IVPB IV PRN (06:43)
--- NOTE | 2017-01-31 08:18 | HHI.CCPN ---
Subjective Remarks/Hospital Course Patient is a 71-year-old female with past medical history significant for a left frontal meningioma resection in 2001 with residual tumor (MRI showing meningioma 5.4x4.4x1.6cm), hypertension, dyslipidemia who was found to have a 5-10 minutes witnessed tonic-clonic seizure today. EMS was called and on the arrival patient had another two-minute tonic-clonic seizures and received 2 mg Ativan. In the ER was evaluated by Dr. Harper. Critical care medicine was consulted for new onset seizures and postictal encephalopathy. I immediately evaluated the patient in the ED. Patient is difficult to arouse even though she opens eyes to painful stimuli immediately goes back to sleep. Withdraws extremities localizes with left upper extremity. Right upper extremity appeared weaker. Her chest exam revealed bilateral coarse wheezes and crackles, airway protection questionable. A stat CT showed bifrontal encephalomalacia but no acute findings. Patient was emergently moved to the ICU and I intubated her for airway protection. Also placed left IJ central line. Case discussed extensively with Dr. Osman neurology. 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 With history of meningioma Dr. Osman does not want to do empiric TPA. We will get a stat MRI of the brain. Daughter was updated. Patient has a history of questionable TIA about 4 years ago. I have ordered Cerebyx loading dose 1 g and continued Cerebyx at 100 mg every 8 hours. Stat EEG also pending at this time. I'm also given a history that patient has chronic Xanax use 0.25 mg daily at bedtime for insomnia. She had ran out of Xanax since 01/26/17. Patient was also found to be in atrial fibrillation with rapid ventricular response which is new onset. Post intubation and sedation rate controlled patient remains in A. fib SUBJ 01/30: Patient remains intubated sedated. Remains in atrial fibrillation, rate controlled. Cleared by neurosrugery for antiplatelet therapy. Will check again with Dr. Fabian and start anticoagulation with Lovenox and transition to coumadin. [id number] score is 4. Patient wakes up easily follows commands. Plan for SBT with possible extubation, No further seizures SUBJ 01/31: Extubated yesterday tolerating well. No further seizures reported. Left shoulder pain MRI shows Tendinopathy and thinning involving the distal 1 cm of the supraspinatus tendon, moderate joint effusion and marked fluid in the subacromion subdeltoid bursa. Deltoid muscle sprain. Dr. Schultz recommended nonoperative management with use of the sling for comfort, physical therapy Objective Vital Signs Date Time Temp Pulse Resp B/P (MAP) Pulse Ox O2 Delivery O2 Flow Rate FiO2 01/31/17 06:00 68 01/31/17 04:18 19 01/31/17 04:00 99.1 129/62 (84) 95 01/30/17 23:16 21 01/30/17 22:35 Room Air 01/30/17 19:00 2.00 Intake and Output 01/31/17 01/31/17 02/01/17 08:00 16:00 00:00 Intake Total 724 ml Output Total 400 ml Balance 324 ml Result Diagram: 01/30/17 0525 01/31/[address] of the brain shows bifrontal encephalomalacia MRI pending at this time Objective Remarks GENERAL: 81-year-old female alert awake oriented, hard of hearing SKIN:Warm/dry. HEAD: Atraumatic. Normocephalic. EYES: Pupils equal and round at 2mm bilaterally. ENT: No nasal bleeding or discharge. NECK: Trachea midline. No JVD. CARDIOVASCULAR: NSR. No murmur appreciated. RESPIRATORY: Coarse breath sounds bilaterally. GASTROINTESTINAL: Abdomen soft, non-tender, nondistended. MUSCULOSKELETAL: L shoulder swelling and pain on movement NEUROLOGICAL: Alert awake hard of hearing oriented to person and place. No focal deficits A/P Assessment and Plan NEURO: New onset seizures with postictal state Post ictal Gómez's paralysis Large frontal meningioma - Ativan 2 mg IV every 4 hours when necessary for seizures - EEG 01/30: Bilateral structural abnormalities right more than left with some frontal sharp waves, but no definitive paroxysmal discharge present. No ictal pattern. - DC Cerebyx, start PO Dilantin - CT of the head did not show any acute changes. MRI of the brain-Recurrent dorsum sella meningioma with impingement on the optic chiasm and nerves, anterior cervical arteries and anterior communicating artery as well as the pituitary stalk. Could be potential trigger for Sz per Dr. Fabian - Aspirin 81 mg daily, due to questionable TIA history - Neurosurgery Dr. Fabian. Discussed extensively with neurology Dr. Osman and Dr. Fabian - MRI 05/12/16 showing meningioma 5.4x4.4x1.6cm RESP: Acute respiratory failure Aspiration pneumonitis - Intubated for airway protection, extubated 01/30 - DuoNeb every 6 hours when necessary - F/U sputum culture negative CV: MAT Hypertension - DC IV fluids - Echo estimated ejection fraction in the range of 50- 55%. Normal left ventricular size. - Reviewed EKG and telemetry strips with Dr. butcher-no evidence of A. fib. Irregular heart rate was due to MAT - Continue Coreg 6.25 BID. Continue lisinopril 5 mg daily - Started aspirin 81 mg daily given hx of possble TIA GI: - Diet per speech recommendation. Discontinued GI prophylaxis : Acute kidney injury most likely from dehydration - DC IVF ID: - Monitor for infection especially aspiration pneumonia - F/u sputum culture. No antibiotics at this time - Blood cultures ordered for fever HEME: Leukocytosis-resolved - Monitor CBC, CMP, coags - Leukocytosis most likely related to stress ENDO: Hypokalemia Hyperglycemia - Electrolyte replacement per protocol - Sliding-scale insulin - Hemoglobin A1c-6 PROPH: - Bilateral lower extremity SCDs. Lovenox 40 mg sq q24. DC IV famotidine for GI prophylaxis LINES: - Left IJ central line placed-maintain for 24 for aggressive K replacement. TIERRA Viera DC central line Level 2 Ok to transfer to Med/Surg with Tele if cleared by neurology Juan Cook MD Jan 31, 2017 08:18
[2017-01-31] MEDS: PRAVASTATIN SOD 20 MG TAB PO SCH (08:25)
[2017-01-31] MEDS: CARVEDILOL 6.25 MG TAB PO SCH ×2 (08:25→22:37)
[2017-01-31] MEDS: ASPIRIN 81 MG CHEW TAB CHEW SCH (08:26)
[2017-01-31] MEDS: LISINOPRIL 5 MG TAB PO SCH (08:26)
[2017-01-31] MEDS ORDERED: POTASSIUM CHLORIDE 25 MEQ EFFERVESCENT TAB PO SCH (09:00)
[2017-01-31] MEDS: ENOXAPARIN SODIUM 40 MG/0.4 ML SYRINGE SQ SCH (09:00)
[2017-01-31] MEDS: PHENYTOIN SODIUM 100 MG CAP PO SCH ×2 (09:25→17:24)
--- NOTE | 2017-01-31 12:25 | HHI.NSPN ---
(Arturo Gill) History Chief Complaint: None (Arturo Gill) Interval History 01/29: Ms. 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 The patient this done while up until today when she developed acute onset of speech deficit followed by a grand mal seizure. She was brought to the emergency room and intubated for airway protection. Initial CT scan did not reveal any hemorrhage or other acute changes. She has been placed on Sravanthi back sprain. She has been seen by neurology and EEG report indicates right greater than left frontal slowing with sharp waves but no focal ictal activity. The patient was noted to be in atrial fibrillation on presentation to the emergency room. She does not have a history of atrial fibrillation. 01/31: The patient is asleep sitting up in a chair when seen this morning. She awakens to voice and states she is "okay." She had no complaints. (Arturo Gill) Exam Results 01/29/17 01/29/17 01/30/17 01/30/17 01/31/17 01/31/17 06:00 18:00 06:00 18:00 06:00 18:00 Intake Total 629 ml 1488 ml 950 ml 724 ml 212 ml Output Total 1400 ml 450 ml 425 ml 400 ml Balance -771 ml 1038 ml 525 ml 324 ml 212 ml Intake Oral 600 ml 240 ml IV Total 629 ml 1288 ml 350 ml 484 ml 212 ml Other 200 ml Output Urine Total 1400 ml 450 ml 425 ml 400 ml # Bowel Movements 0 0 0 1 Vital Signs Date Time Temp Pulse Resp B/P (MAP) Pulse Ox O2 Delivery O2 Flow Rate FiO2 01/31/17 09:22 96 21 01/31/17 08:00 69 01/31/17 08:00 98.6 69 13 113/51 (71) 96 01/31/17 08:00 96 Room Air 01/31/17 06:00 68 01/31/17 04:18 19 01/31/17 04:00 99.1 87 18 129/62 (84) 95 01/31/17 04:00 87 01/31/17 02:00 91 01/31/17 01:30 24 01/31/17 00:00 81 01/31/17 00:00 99.5 74 20 129/62 (84) 95 01/30/17 23:16 95 21 01/30/17 22:35 96 Room Air 01/30/17 22:00 74 01/30/17 20:00 79 01/30/17 20:00 99.3 79 22 155/69 (97) 98 01/30/17 19:00 98 Nasal Cannula 2.00 01/30/17 16:00 76 01/30/17 16:00 98.7 76 18 127/72 (90) 98 01/30/17 13:00 97 Nasal Cannula 2.00 01/30/17 12:00 69 01/30/17 12:00 98.8 69 16 142/65 (90) 96 01/30/17 08:38 99 Nasal Cannula 3.00 01/30/17 08:00 99.7 87 16 157/69 (98) 96 01/30/17 08:00 87 01/30/17 07:45 96 Nasal Cannula 4.00 01/30/17 07:45 92 Nasal Cannula 3 01/30/17 07:23 100 40 01/30/17 07:15 40 01/30/17 07:10 40 01/30/17 06:00 83 01/30/17 04:00 100 40 01/30/17 04:00 100.0 67 16 115/57 (76) 100 01/30/17 04:00 67 01/30/17 04:00 40 01/30/17 02:00 74 01/30/17 00:27 100 40 01/30/17 00:00 40 01/30/17 00:00 101.3 78 26 126/60 (82) 100 01/30/17 00:00 78 01/29/17 22:00 73 01/29/17 21:00 150/67 (94) 01/29/17 20:58 100 40 01/29/17 20:00 99.4 77 24 190/77 (114) 100 01/29/17 20:00 72 01/29/17 20:00 40 01/29/17 18:00 68 01/29/17 17:00 97 40 01/29/17 16:41 70 157/70 01/29/17 16:40 70 157/70 01/29/17 16:00 99.2 69 16 139/64 (89) 100 01/29/17 16:00 69 01/29/17 16:00 40 01/29/17 14:00 57 01/29/17 14:00 40 01/29/17 14:00 40 01/29/17 13:57 99 60 01/29/17 12:07 77 132/59 01/29/17 12:00 81 01/29/17 12:00 98.0 81 16 222/95 (137) 100 01/29/17 11:30 98 50 01/29/17 11:30 100 Mechanical Ventilator 50 01/29/17 10:30 70 01/29/17 10:30 97.5 70 16 132/59 (83) 100 01/29/17 10:20 50 01/29/17 10:20 100 50 01/29/17 10:19 01/29/17 09:30 110 15 173/73 (106) 91 Nasal Cannula 3.00 01/29/17 09:18 113 15 97 Non-Rebreather 15.00 01/29/17 09:13 97.5 117 15 98 Non-Rebreather 15.00 (Arturo Gill) Physical Examination GENERAL: Asleep but awakens to voice, readily interacts, affect essentially normal, no evident distress. HEAD: Normocephalic, atraumatic. PERRLA 2 mm brisk, EOMI. MMM & pink, tongue midline to protrusion. MUSCULOSKELETAL: OQUENDO w/o difficulty, no evident clubbing or deformity. NEUROLOGICAL: Sleeping but awakens to voice, oriented.to person & place. Speech clear & appropriate. Follows simple commands w/o difficulty. 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 Sensation intact to light touch to all extremities. Motor strength is 5/5 on right and 4+/5 on left to all major flexion & extension muscle groups. (Arturo Gill) Lab, Micro, Other Results Recent Impressions Shoulder X-Ray 01/30/17 0000 Signed Impressions: Service Date/Time: Monday, January 30, 2017 09:41 - CONCLUSION: No fracture. Dawson Ballesteros MD Shoulder MRI 01/30/17 0000 Signed Impressions: Service Date/Time: Monday, January 30, 2017 12:05 - CONCLUSION: Tendinopathy and thinning involving the distal 1 cm of the supraspinatus tendon. There is a moderate joint effusion and marked fluid in the subacromion subdeltoid bursa. Deltoid muscle sprain. Vickey Villanueva MD Radius/Ulna X-Ray 01/30/17 0000 Signed Impressions: Service Date/Time: Monday, January 30, 2017 09:12 - CONCLUSION: 1. Forearm is intact. 2. However, possible fracture through the distal aspect of the first metacarpal versus Mach lines secondary to the regional sesamoid bones. If patient does not complain of any discomfort in this location, no further workup is necessary. Otherwise, dedicated views of the thumb would be suggested. 3. Benign-appearing osseous cyst at the base of the first metacarpal and in scattered carpal bones with regional degenerative changes. Dawson Ballesteros MD Hand X-Ray 01/30/17 0000 Signed Impressions: Service Date/Time: Monday, January 30, 2017 13:57 - CONCLUSION: 1. Generalized soft tissue swelling 2. Mild arthropathy of the interphalangeal joints. 3. No evidence of acute fracture or dislocation. Mor Mckinnon MD Head CT 01/29/17 0000 Signed Impressions: Service Date/Time: Sunday, January 29, 2017 10:02 - CONCLUSION: 1. Bifrontal encephalomalacia. 2. No acute intracranial abnormality. 3. Nonspecific white matter changes Kiko Carson MD Chest X-Ray 01/29/17 0000 Signed Impressions: Service Date/Time: Sunday, January 29, 2017 10:36 - CONCLUSION: 1. Minimal left basilar density. 2. Adequate placement of endotracheal tube and left jugular central line Kiko Carson MD Chest X-Ray 01/29/17 0000 Signed Impressions: Service Date/Time: Sunday, January 29, 2017 09:54 - CONCLUSION: Left basilar density. Kiko Carson MD Brain MRI 01/29/17 0000 Signed Impressions: Service Date/Time: Sunday, January 29, 2017 11:06 - CONCLUSION: 1. Residual versus recurrent enhancing extra-axial mass is identified in the suprasellar cistern, along the planum sphenoidale and within the anterior cranial fossa. The largest component is in the left anterior cranial fossa causing mild to moderate effacement of the orbital frontal region of the frontal lobe. 2. No evidence of acute infarct, hemorrhage or edema. 3. Extensive bifrontal encephalomalacia status post craniotomy. 4. 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 Mor Mckinnon MD Laboratory Tests Test 01/29/17 09:45 01/29/17 10:30 01/29/17 10:40 01/29/17 12:20 White Blood Count 15.1 TH/MM3 Red Blood Count 4.24 MIL/MM3 Hemoglobin 12.8 GM/DL Hematocrit 38.5 % Mean Corpuscular Volume 90.7 FL Mean Corpuscular Hemoglobin 30.1 PG Mean Corpuscular Hemoglobin Concent 33.2 % Red Cell Distribution Width 12.8 % Platelet Count 336 TH/MM3 Mean Platelet Volume 9.5 FL Neutrophils (%) (Auto) 55.7 % Lymphocytes (%) (Auto) 37.9 % Monocytes (%) (Auto) 3.5 % Eosinophils (%) (Auto) 1.6 % Basophils (%) (Auto) 1.3 % Neutrophils # (Auto) 8.4 TH/MM3 Lymphocytes # (Auto) 5.7 TH/MM3 Monocytes # (Auto) 0.5 TH/MM3 Eosinophils # (Auto) 0.2 TH/MM3 Basophils # (Auto) 0.2 TH/MM3 CBC Comment AUTO DIFF Differential Total Cells Counted 100 Neutrophils % (Manual) 52 % Lymphocytes % 43 % Monocytes % 4 % Eosinophils % 1 % Neutrophils # (Manual) 7.9 TH/MM3 Differential Comment FINAL DIFF MANUAL Platelet Estimate NORMAL Platelet Morphology Comment NORMAL Red Cell Morphology Comment NORMAL Prothrombin Time 10.3 SEC Prothromb Time International Ratio 1.0 RATIO Activated Partial Thromboplast Time 22.2 SEC Blood Urea Nitrogen 12 MG/DL Creatinine 1.23 MG/DL Random Glucose 192 MG/DL Total Protein 7.9 GM/DL Albumin 3.5 GM/DL Calcium Level 9.0 MG/DL Magnesium Level 1.8 MG/DL Alkaline Phosphatase 88 U/L Aspartate Amino Transf (AST/SGOT) 14 U/L Alanine Aminotransferase (ALT/SGPT) 16 U/L Total Bilirubin 0.5 MG/DL Sodium Level 138 MEQ/L Potassium Level 2.7 MEQ/L Chloride Level 102 MEQ/L Carbon Dioxide Level 15.4 MEQ/L Anion Gap 21 MEQ/L Estimat Glomerular Filtration Rate 42 ML/MIN Hemoglobin A1c 6.0 % Troponin I LESS THAN 0.02 NG/ML Thyroid Stimulating Hormone 3rd Gen 1.740 uIU/ML Urine Color LIGHT-YELLOW Urine Turbidity CLEAR Urine pH 7.0 Urine Specific [place] 1.012 Urine Protein 300 mg/dL Urine Glucose (UA) NEG mg/dL Urine Ketones TRACE mg/dL Urine Occult Blood SMALL Urine Nitrite NEG Urine Bilirubin NEG Urine Urobilinogen LESS THAN 2.0 MG/DL Urine Leukocyte Esterase NEG Urine RBC 3 /hpf Urine WBC 3 /hpf Urine Squamous Epithelial Cells <1 /hpf Urine Hyaline Casts 4 /lpf Urine Mucus FEW /lpf Microscopic Urinalysis Comment CATH-CULT NOT IND Nasal Screen MRSA (PCR) MRSA NOT DETECTED Lactic Acid Level 4.4 mmol/L Test 01/29/17 13:00 01/29/17 16:00 01/30/17 05:25 01/30/17 15:00 Blood Gas Puncture Site RT RADIAL Blood Gas Patient Temperature 98.6 Blood Gas HCO3 21 mmol/L Blood Gas Base Excess -3.4 mmol/L Blood Gas Oxygen Saturation 97 % Arterial Blood pH 7.35 Arterial Blood Partial Pressure CO2 40 mmHg Arterial Blood Partial Pressure O2 141 mmHg Arterial Blood Oxygen Content 17.1 Vol % Arterial Blood Carboxyhemoglobin 0.8 % Arterial Blood Methemoglobin 0.9 % Blood Gas Hemoglobin 12.4 G/DL Oxygen Delivery Device VENTILATOR Blood Gas Ventilator Setting Blood Gas Inspired Oxygen 50 % Blood Urea Nitrogen 13 MG/DL 13 MG/DL Creatinine 0.98 MG/DL 0.98 MG/DL Random Glucose 163 MG/DL 123 MG/DL Total Protein 7.0 GM/DL Albumin 3.0 GM/DL Calcium Level 7.5 MG/DL 7.9 MG/DL Phosphorus Level 2.3 MG/DL Magnesium Level 1.6 MG/DL 1.5 MG/DL 2.0 MG/DL Alkaline Phosphatase 80 U/L Aspartate Amino Transf (AST/SGOT) 13 U/L Alanine Aminotransferase (ALT/SGPT) 17 U/L Total Bilirubin 0.5 MG/DL Sodium Level 139 MEQ/L 141 MEQ/L Potassium Level 3.7 MEQ/L 3.1 MEQ/L 3.7 MEQ/L Chloride Level 105 MEQ/L 109 MEQ/L Carbon Dioxide Level 25.6 MEQ/L 22.8 MEQ/L Anion Gap 8 MEQ/L 9 MEQ/L Estimat Glomerular Filtration Rate 54 ML/MIN 54 ML/MIN Lactic Acid Level 3.3 mmol/L 2.1 mmol/L Vitamin B12 Level 1837 PG/ML White Blood Count 14.0 TH/MM3 Red Blood Count 3.69 MIL/MM3 Hemoglobin 11.1 GM/DL Hematocrit 32.1 % Mean Corpuscular Volume 87.0 FL Mean Corpuscular Hemoglobin 30.1 PG Mean Corpuscular Hemoglobin Concent 34.5 % Red Cell Distribution Width 12.8 % Platelet Count 251 TH/MM3 Mean Platelet Volume 8.9 FL Phenytoin (Dilantin) Level 15.3 MCG/ML Test 01/31/17 05:43 Blood Urea Nitrogen 16 MG/DL Creatinine 0.94 MG/DL Random Glucose 107 MG/DL Total Protein 5.8 GM/DL Albumin 2.4 GM/DL Calcium Level 7.7 MG/DL Magnesium Level 1.8 MG/DL Alkaline Phosphatase 56 U/L Aspartate Amino Transf (AST/SGOT) 19 U/L Alanine Aminotransferase (ALT/SGPT) 14 U/L Total Bilirubin 0.7 MG/DL Sodium Level 138 MEQ/L Potassium Level 3.4 MEQ/L Chloride Level 107 MEQ/L Carbon Dioxide Level 22.9 MEQ/L Anion Gap 8 MEQ/L Estimat Glomerular Filtration Rate 57 ML/MIN (Arturo Gill) Medical Decision Making Impression and Plan Impression: 1. Recurrent dorsum sella meningioma with impingement on the optic chiasm and nerves, anterior cervical arteries and anterior communicating artery as well as the pituitary stalk. The lesion extends primarily towards the left planum sphenoidale and cribriform plate with impingement on the inferior medial left frontal lobe, but no significant overall mass effect. Significant bilateral chronic frontal encephalomalacia. 2. New onset seizure 3. New-onset atrial fibrillation 4. History of Hypertension No significant overall mass effect from the neoplasm at present. However impingement on the left medial frontotemporal parenchyma is a potential source of the new seizures. Given the proximity to the optic nerves and chiasm, pituitary stalk and anterior cerebral arteries, radiation therapy and radiosurgery may be less optimal options. Patient doing well, appears to be neurologically intact. Plan: Primary management per Forming Machine Tender/Hospitalist. Antiepileptics per Neurology. Neuro checks. Stat CT brain for any decline in neurological status. May begin antiplatelet agent as indicated for new onset atrial fibrillation as well as Lovenox for DVT prophylaxis. Mobilise patient w/assistance. PT/OT/ST eval & tx. (Arturo Gill) Attending Statement The exam, history, and the medical decision-making described in the above note were completed with the assistance of the mid-level provider. I reviewed and agree with the findings presented. I attest that I had a [id number] encounter with the patient on the same day, and personally performed and documented my assessment and findings in the medical record. On my examination today the patient is awake and alert. Conversing mostly appropriate. Speech is clear Extraocular movements and visual ca to confrontation are intact Fascial sensorimotor intact Moves all extremities with good strength I had a discussion with the patient today regarding the recent MRI findings with recurrent meningioma palmarly along the frontal skull base. Various treatment options were discussed. I advised her that we will discuss findings and treatment options together with her family when she is able to undertake this conversation. Otherwise neurologically stable. May mobilize out of bed and advance diet as tolerated. Stable for regular floor from neurosurgical standpoint (Peter Fabian MD) Arturo Gill Jan 31, 2017 12:25 Peter Fabian MD Jan 31, 2017 20:06
--- NOTE | 2017-01-31 12:58 | PD.CARD.PN ---
Subjective Subjective Remarks No CP or SOB, feels better, no evidence of a fib Objective Medications Current Medications Medications (Trade) Dose Ordered Sig/Josefina Route Start Time Stop Time Status Last Admin (Brethine Inj) 1 mg UNSCH PRN SQ 01/29/17 10:15 Miscellaneous Information D/C ICU ELECTROLYTE ORDERS... UNSCH PRN .XX 01/29/17 12:00 Miscellaneous Information ICU - CALL ORDERING PHYSIC... UNSCH PRN .XX 01/29/17 12:00 Potassium Chloride 100 ml @ 25 mls/hr UNSCH PRN IV 01/29/17 12:00 01/31/17 06:43 (K-Lyte Cl Eff) 50 meq UNSCH PRN PO 01/29/17 12:00 Potassium Chloride 100 ml @ 50 mls/hr UNSCH PRN IV 01/29/17 12:00 01/29/17 14:32 Magnesium Sulfate 4 gm/Sodium Chloride 108 ml @ 54 mls/hr UNSCH PRN IV 01/29/17 12:00 Magnesium Sulfate 2 gm/Sodium Chloride 104 ml @ 52 mls/hr UNSCH PRN IV 01/29/17 12:00 (Mag-Ox) 800 mg UNSCH PRN PO 01/29/17 12:00 Sodium Phosphate 30 mmol/Sodium Chloride 260 ml @ 43.333 mls/ hr UNSCH PRN IV 01/29/17 12:00 (K-Phos) 2,000 mg UNSCH PRN PO 01/29/17 12:00 Potassium Phosphate 30 mmol/ Sodium Chloride 260 ml @ 43.333 mls/ hr UNSCH PRN IV 01/29/17 12:00 (NovoLOG SUPPLEMENTAL SCALE) 1 Q4H SQ 01/29/17 15:00 01/30/17 19:38 (Ativan Inj) 1 mg Q4H PRN IV PUSH 01/29/17 13:00 01/29/17 13:30 (Aspirin Chew) 81 mg DAILY CHEW 01/30/17 09:00 01/31/17 08:26 (Duoneb Neb) 1 ampule Q4HR NEB PRN NEB 01/29/17 13:15 01/30/17 07:23 (D50w (Vial) Inj) 50 ml UNSCH PRN IV PUSH 01/29/17 14:15 (Glucagon Inj) 1 mg UNSCH PRN OTHER 01/29/17 14:15 (Tylenol) 650 mg Q6H PRN PO 01/30/17 01:30 01/31/17 00:11 (Prinivil) 5 mg DAILY PO 01/30/17 09:00 01/31/17 08:26 (Pravachol) 20 mg DAILY PO 01/30/17 09:00 01/31/17 08:25 (Coreg) 6.25 mg Q12HR PO 01/30/17 09:00 01/31/17 08:25 (Apresoline Inj) 10 mg Q4H PRN IV PUSH 01/30/17 16:00 (Trandate Inj) 10 mg Q4H PRN IV PUSH 01/30/17 16:00 (Lovenox Inj) 40 mg DAILY SQ 01/31/17 09:00 01/31/17 09:00 (Toradol Inj) 15 mg Q6H PRN IM 01/31/17 03:15 02/05/17 03:14 01/31/17 03:14 (Dilantin) 100 mg Q8H PO 01/31/17 09:00 01/31/17 09:25 (KCl) 20 meq DAILY PO 01/31/17 10:25 Vital Signs / I&O Vital Signs Date Time Temp Pulse Resp B/P (MAP) Pulse Ox O2 Delivery O2 Flow Rate FiO2 01/31/17 12:00 98.7 65 18 133/58 (83) 98 01/31/17 12:00 65 01/31/17 09:22 96 21 01/31/17 08:00 69 01/31/17 08:00 98.6 69 13 113/51 (71) 96 01/31/17 08:00 96 Room Air 01/31/17 06:00 68 01/31/17 04:18 19 01/31/17 04:00 99.1 87 18 129/62 (84) 95 01/31/17 04:00 87 01/31/17 02:00 91 01/31/17 01:30 24 01/31/17 00:00 81 01/31/17 00:00 99.5 74 20 129/62 (84) 95 01/30/17 23:16 95 21 01/30/17 22:35 96 Room Air 01/30/17 22:00 74 01/30/17 20:00 79 01/30/17 20:00 99.3 79 22 155/69 (97) 98 01/30/17 19:00 98 Nasal Cannula 2.00 01/30/17 16:00 76 01/30/17 16:00 98.7 76 18 127/72 (90) 98 01/30/17 13:00 97 Nasal Cannula 2.00 I/O 01/30/17 01/30/17 01/30/17 01/31/17 01/31/17 01/31/17 07:00 15:00 23:00 07:00 15:00 23:00 Intake Total 1538 ml 300 ml 600 ml 724 ml 212 ml Output Total 450 ml 425 ml 400 ml Balance 1088 ml 300 ml 175 ml 324 ml 212 ml Intake Oral 600 ml 240 ml IV Total 1338 ml 300 ml 484 ml 212 ml Other 200 ml Output Urine Total 450 ml 425 ml 400 ml # Bowel Movements 0 0 1 Physical Exam GENERAL: In NAD SKIN: Warm and dry. HEAD: Normocephalic. EYES: No scleral icterus. No injection or drainage. NECK: Supple, trachea midline. No JVD or lymphadenopathy. CARDIOVASCULAR: Regular rate and rhythm without murmurs, gallops, or rubs. RESPIRATORY: Breath sounds equal bilaterally. No accessory muscle use. GASTROINTESTINAL: Abdomen soft, non-tender, nondistended. MUSCULOSKELETAL: No cyanosis, or edema. Laboratory Laboratory Tests Test 01/30/17 15:00 01/31/17 05:43 Potassium Level 3.7 MEQ/L 3.4 MEQ/L Magnesium Level 2.0 MG/DL 1.8 MG/DL Blood Urea Nitrogen 16 MG/DL Creatinine 0.94 MG/DL Random Glucose 107 MG/DL Total Protein 5.8 GM/DL Albumin 2.4 GM/DL Calcium Level 7.7 MG/DL Alkaline Phosphatase 56 U/L Aspartate Amino Transf (AST/SGOT) 19 U/L Alanine Aminotransferase (ALT/SGPT) 14 U/L Total Bilirubin 0.7 MG/DL Sodium Level 138 MEQ/L Chloride Level 107 MEQ/L Carbon Dioxide Level 22.9 MEQ/L Anion Gap 8 MEQ/L Estimat Glomerular Filtration Rate 57 ML/MIN Assessment and Plan Problem List: (1) Atrial ectopy ICD Codes: I49.1 - Atrial premature depolarization (2) New onset seizure ICD Codes: R56.9 - Unspecified convulsions (3) Todds paralysis vs acute CVA (4) Acute respiratory failure ICD Codes: J96.00 - Acute respiratory failure, unspecified whether with hypoxia or hypercapnia (5) History of resection of meningioma ICD Codes: Z98.890 - Other specified postprocedural states Assessment and Plan Telemetry and EKGs thoroughly reviewed; there is no evidence of atrial fibrillation. Frequent atrial ectopy now improved. Echo with normal LV systolic function. No recurrent seizures. Increase activity. Transfer to floor. D/w pt and family. Alexandria Rivera MD Jan 31, 2017 12:58
[2017-01-31] MEDS: POTASSIUM CHLORIDE 20 MEQ CONTROLLED RELEASE TAB PO SCH (13:00)
[2017-01-31] MEDS: RESP: ALBUTEROL 2.5 MG/IPRATROPIUM 0.5 MG NEB (PRN) NEB (22:13)
[2017-02-01] VITALS (8 sets, daily range): BP systolic 130–157; BP diastolic 62–71; PULSE 72–111; RESP 21–22; TEMP 98.1–98.8; O2SAT 95–97
[2017-02-01] MEDS: PHENYTOIN SODIUM 100 MG CAP PO SCH (01:24)
[2017-02-01] MEDS: RESP: ALBUTEROL 2.5 MG/IPRATROPIUM 0.5 MG NEB (PRN) NEB (05:18)
[2017-02-01 05:44] LABS: POTASSIUM 4.1 MEQ/L (3.5-5.1)
[2017-02-01] MEDS: INSULIN ASPART SUPPLEMENTAL SCALE SQ SCH (07:00)
--- NOTE | 2017-02-01 07:08 | RADRPT ---
EXAM DATE/TIME: 02/01/2017 06:48 [facility] COMPARISON: CHEST SINGLE AP, January 29, 2017, 10:36. INDICATIONS : Shortness of breath. MEDICAL HISTORY : Hypercholesterolemia. Hypertension SURGICAL HISTORY : None. ENCOUNTER: Subsequent ACUITY: 3 days PAIN SCORE: 0/10 LOCATION: Bilateral chest FINDINGS: Persistent consolidative infiltrate in the medial left lower lung. No infiltrates seen on the right side. There is some indistinctness of the central bronchopulmonary markings. Interval extubation. Left internal jugular catheter tip projects over the origin of the superior vena cava. CONCLUSION: Increasing left lower lobe infiltrates.. Sigifredo Esposito MD on February 01, 2017 at 7:05 Board Certified Radiologist. This report was verified electronically.
[2017-02-01] MEDS ORDERED: FUROSEMIDE 20 MG/2 ML VIAL IV PUSH ONE (07:15)
[2017-02-01] MEDS ORDERED: POTASSIUM CHLORIDE 20 MEQ CONTROLLED RELEASE TAB PO ONE (07:15)
--- NOTE | 2017-02-01 07:17 | HHI.CCPN ---
Subjective Remarks/Hospital Course Patient is a 71-year-old female with past medical history significant for a left frontal meningioma resection in 2001 with residual tumor (MRI showing meningioma 5.4x4.4x1.6cm), hypertension, dyslipidemia who was found to have a 5-10 minutes witnessed tonic-clonic seizure today. EMS was called and on the arrival patient had another two-minute tonic-clonic seizures and received 2 mg Ativan. In the ER was evaluated by Dr. Harper. Critical care medicine was consulted for new onset seizures and postictal encephalopathy. I immediately evaluated the patient in the ED. Patient is difficult to arouse even though she opens eyes to painful stimuli immediately goes back to sleep. Withdraws extremities localizes with left upper extremity. Right upper extremity appeared weaker. Her chest exam revealed bilateral coarse wheezes and crackles, airway protection questionable. A stat CT showed bifrontal encephalomalacia but no acute findings. Patient was emergently moved to the ICU and I intubated her for airway protection. Also placed left IJ central line. Case discussed extensively with Dr. Osman neurology. 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 With history of meningioma Dr. Osman does not want to do empiric TPA. We will get a stat MRI of the brain. Daughter was updated. Patient has a history of questionable TIA about 4 years ago. I have ordered Cerebyx loading dose 1 g and continued Cerebyx at 100 mg every 8 hours. Stat EEG also pending at this time. I'm also given a history that patient has chronic Xanax use 0.25 mg daily at bedtime for insomnia. She had ran out of Xanax since 01/26/17. Patient was also found to be in atrial fibrillation with rapid ventricular response which is new onset. Post intubation and sedation rate controlled patient remains in A. fib SUBJ 01/30: Patient remains intubated sedated. Remains in atrial fibrillation, rate controlled. Cleared by neurosrugery for antiplatelet therapy. Will check again with Dr. Fabian and start anticoagulation with Lovenox and transition to coumadin. [id number] score is 4. Patient wakes up easily follows commands. Plan for SBT with possible extubation, No further seizures SUBJ 01/31: Extubated yesterday tolerating well. No further seizures reported. Left shoulder pain MRI shows Tendinopathy and thinning involving the distal 1 cm of the supraspinatus tendon, moderate joint effusion and marked fluid in the subacromion subdeltoid bursa. Deltoid muscle sprain. Dr. Schultz recommended nonoperative management with use of the sling for comfort, physical therapy 02/01: No seizures. Intermittent exertional dyspnea, and wheezing. Chest x- ray showing mild pulmonary vascular congestion. Breathing treatment given IV Lasix 20 mg 1 and potassium replacement ordered Objective Vital Signs Date Time Temp Pulse Resp B/P (MAP) Pulse Ox O2 Delivery O2 Flow Rate FiO2 02/01/17 05:19 96 02/01/17 04:00 98.8 78 22 130/62 (84) 01/31/17 21:04 21 01/31/17 19:00 Room Air 01/30/17 19:00 2.00 Result Diagram: 01/30/17 0525 02/01/[address] of the brain shows bifrontal encephalomalacia MRI pending at this time Objective Remarks GENERAL: 81-year-old female alert awake oriented, hard of hearing SKIN:Warm/dry. HEAD: Atraumatic. Normocephalic. EYES: Pupils equal and round at 2mm bilaterally. ENT: No nasal bleeding or discharge. NECK: Trachea midline. No JVD. CARDIOVASCULAR: NSR. No murmur appreciated. RESPIRATORY: Coarse breath sounds bilaterally. Occasional expiratory wheezing GASTROINTESTINAL: Abdomen soft, non-tender, nondistended. MUSCULOSKELETAL: L shoulder swelling and pain on movement NEUROLOGICAL: Alert awake hard of hearing oriented to person and place. No focal deficits A/P Assessment and Plan NEURO: New onset seizures with postictal state Post ictal Gómez's paralysis Large frontal meningioma - Ativan 2 mg IV every 4 hours when necessary for seizures - EEG 01/30: Bilateral structural abnormalities right more than left with some frontal sharp waves, but no definitive paroxysmal discharge present. No ictal pattern. - On PO Dilantin. Dilantin level 14.9, corrected level is 25, reduce Dilantin to 100 q12h - CT of the head did not show any acute changes. - MRI of the brain-Recurrent dorsum sella meningioma with impingement on the optic chiasm and nerves, anterior cervical arteries and anterior communicating artery as well as the pituitary stalk. Could be potential trigger for Sz per Dr. Fabian - Aspirin 81 mg daily, due to questionable TIA history - Neurosurgery Dr. Fabian. Neurology - MRI 05/12/16 showing meningioma 5.4x4.4x1.6cm RESP: Acute respiratory failure Aspiration pneumonitis - Intubated for airway protection, extubated 01/30 - DuoNeb every 6 hours when necessary - F/U sputum culture negative CV: MAT Hypertension Mild pulmonary vascular congestion - DCd IV fluids. Given Lasix 20 mg IV 1 - Echo estimated ejection fraction in the range of 50- 55%. Normal left ventricular size. - Reviewed EKG and telemetry strips with Dr. butcher-no evidence of A. fib. Irregular heart rate was due to MAT - Continue Coreg 6.25 BID. Continue lisinopril 5 mg daily - Resume chlorothiazide 250 mg daily with potassium supplements - Started aspirin 81 mg daily given hx of possble TIA GI: - Diet per speech recommendation. Discontinued GI prophylaxis : Acute kidney injury most likely from dehydration - DC IVF. IV lasix 20 mg x1 ID: - Monitor for infection especially aspiration pneumonia - F/u sputum culture. No antibiotics at this time - Blood cultures ordered for fever HEME: Leukocytosis-resolved - Monitor CBC, CMP, coags - Leukocytosis most likely related to stress ENDO: Hypokalemia Hyperglycemia - Electrolyte replacement per protocol - Sliding-scale insulin - Hemoglobin A1c-6 PROPH: - Bilateral lower extremity SCDs. Lovenox 40 mg sq q24. DC IV famotidine for GI prophylaxis LINES: - Left IJ central line placed-maintain for 24 for aggressive K replacement. DC central line Level 2 Ok to DC home if no further SOB, or wheezing and cleared by neurology Juan Cook MD Feb 01, 2017 07:17
[2017-02-01 08:23] LABS: AUTOMATED NEUTROPHIL # 8.2 TH/MM3 (1.8-7.7); BASOPHIL # 0.1 TH/MM3 (0-0.2); BASOPHIL % 1.3 % (0.0-2.0); EOSINOPHIL # 0.6 TH/MM3 (0-0.4); EOSINOPHIL % 5.9 % (0.0-4.0); HEMATOCRIT 31.3 % (35.0-46.0); HEMO FLAGS DIFF FINAL; LYMPH % 7.5 % (9.0-44.0); LYMPHOCYTE # 0.8 TH/MM3 (1.0-4.8); MEAN CELL VOLUME 86.4 FL (80.0-100.0); MEAN CORPUSCULAR HEMOGLOBIN 30.4 PG (27.0-34.0); MEAN CORPUSCULAR HGB CONC 35.1 % (32.0-36.0); NEUT % 80.3 % (16.0-70.0); PLATELET COUNT 233 TH/MM3 (150-450); RED BLOOD COUNT 3.63 MIL/MM3 (4.00-5.30); RED CELL DISTRIBUTION WIDTH 13.1 % (11.6-17.2); WHITE BLOOD COUNT 10.3 TH/MM3 (4.0-11.0)
[2017-02-01] MEDS ORDERED: CHLOROTHIAZIDE 250 MG TAB PO SCH (09:00)
[2017-02-01] MEDS: ASPIRIN 81 MG CHEW TAB CHEW SCH (09:32)
[2017-02-01] MEDS: ENOXAPARIN SODIUM 40 MG/0.4 ML SYRINGE SQ SCH (09:32)
[2017-02-01] MEDS: LISINOPRIL 5 MG TAB PO SCH (09:32)
[2017-02-01] MEDS: CARVEDILOL 6.25 MG TAB PO SCH (09:32)
[2017-02-01] MEDS: POTASSIUM CHLORIDE 20 MEQ CONTROLLED RELEASE TAB PO SCH (09:32)
[2017-02-01] MEDS: PRAVASTATIN SOD 20 MG TAB PO SCH (09:33)
[2017-02-01] MEDS: KETOROLAC TROMETHAMINE 60 MG/2 ML (IM) VIAL IM PRN (09:54)
[2017-02-01] MEDS ORDERED: RESP: ALBUTEROL 2.5 MG/IPRATROPIUM 0.5 MG NEB (SCH) NEB (10:00)
--- NOTE | 2017-02-01 10:02 | HHI.NSPN ---
(Arturo Gill) History Chief Complaint: None (Arturo Gill) Interval History 01/29: Ms. 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 The patient this done while up until today when she developed acute onset of speech deficit followed by a grand mal seizure. She was brought to the emergency room and intubated for airway protection. Initial CT scan did not reveal any hemorrhage or other acute changes. She has been placed on Sravanthi back sprain. She has been seen by neurology and EEG report indicates right greater than left frontal slowing with sharp waves but no focal ictal activity. The patient was noted to be in atrial fibrillation on presentation to the emergency room. She does not have a history of atrial fibrillation. 01/31: The patient is asleep sitting up in a chair when seen this morning. She awakens to voice and states she is "okay." She had no complaints. 02/01: When seen this morning the patient is asleep but awakens to voice. She says she is doing good and had no complaints. Her daughter states that her mother is hoping to be discharged home today. (Arturo Gill) Exam Results 01/30/17 01/30/17 01/31/17 01/31/17 02/01/17 02/01/17 06:00 18:00 06:00 18:00 06:00 18:00 Intake Total 1488 ml 950 ml 724 ml 752 ml 300 ml Output Total 450 ml 425 ml 400 ml 140 ml Balance 1038 ml 525 ml 324 ml 612 ml 300 ml Intake Oral 600 ml 240 ml 300 ml IV Total 1288 ml 350 ml 484 ml 752 ml Other 200 ml Output Urine Total 450 ml 425 ml 400 ml 140 ml # Voids 5 # Bowel Movements 0 0 1 0 0 Vital Signs Date Time Temp Pulse Resp B/P (MAP) Pulse Ox O2 Delivery O2 Flow Rate FiO2 02/01/17 06:00 84 02/01/17 05:19 96 02/01/17 04:00 98.8 78 22 130/62 (84) 96 02/01/17 04:00 78 02/01/17 02:00 111 02/01/17 00:00 98.8 72 21 157/71 (99) 95 02/01/17 00:00 72 01/31/17 22:00 70 01/31/17 21:04 96 21 01/31/17 20:00 74 01/31/17 20:00 99.1 74 26 166/74 (104) 95 01/31/17 19:00 95 Room Air 01/31/17 16:00 74 01/31/17 16:00 98.3 74 16 128/61 (83) 98 01/31/17 12:00 98.7 65 18 133/58 (83) 98 01/31/17 12:00 65 01/31/17 09:22 96 21 01/31/17 08:00 69 01/31/17 08:00 98.6 69 13 113/51 (71) 96 01/31/17 08:00 96 Room Air 01/31/17 06:00 68 01/31/17 04:18 19 01/31/17 04:00 99.1 87 18 129/62 (84) 95 01/31/17 04:00 87 01/31/17 02:00 91 01/31/17 01:30 24 01/31/17 00:00 81 01/31/17 00:00 99.5 74 20 129/62 (84) 95 01/30/17 23:16 95 21 01/30/17 22:35 96 Room Air 01/30/17 22:00 74 01/30/17 20:00 79 01/30/17 20:00 99.3 79 22 155/69 (97) 98 01/30/17 19:00 98 Nasal Cannula 2.00 01/30/17 16:00 76 01/30/17 16:00 98.7 76 18 127/72 (90) 98 01/30/17 13:00 97 Nasal Cannula 2.00 01/30/17 12:00 69 01/30/17 12:00 98.8 69 16 142/65 (90) 96 01/30/17 08:38 99 Nasal Cannula 3.00 01/30/17 08:00 99.7 87 16 157/69 (98) 96 01/30/17 08:00 87 01/30/17 07:45 96 Nasal Cannula 4.00 01/30/17 07:45 92 Nasal Cannula 3 01/30/17 07:23 100 40 01/30/17 07:15 40 01/30/17 07:10 40 01/30/17 06:00 83 01/30/17 04:00 100 40 01/30/17 04:00 100.0 67 16 115/57 (76) 100 01/30/17 04:00 67 01/30/17 04:00 40 01/30/17 02:00 74 01/30/17 00:27 100 40 01/30/17 00:00 40 01/30/17 00:00 101.3 78 26 126/60 (82) 100 01/30/17 00:00 78 01/29/17 22:00 73 01/29/17 21:00 150/67 (94) 01/29/17 20:58 100 40 01/29/17 20:00 99.4 77 24 190/77 (114) 100 01/29/17 20:00 72 01/29/17 20:00 40 01/29/17 18:00 68 01/29/17 17:00 97 40 01/29/17 16:41 70 157/70 01/29/17 16:40 70 157/70 01/29/17 16:00 99.2 69 16 139/64 (89) 100 01/29/17 16:00 69 01/29/17 16:00 40 01/29/17 14:00 57 01/29/17 14:00 40 01/29/17 14:00 40 01/29/17 13:57 99 60 01/29/17 12:07 77 132/59 01/29/17 12:00 81 01/29/17 12:00 98.0 81 16 222/95 (137) 100 01/29/17 11:30 98 50 01/29/17 11:30 100 Mechanical Ventilator 50 01/29/17 10:30 70 01/29/17 10:30 97.5 70 16 132/59 (83) 100 01/29/17 10:20 50 01/29/17 10:20 100 50 01/29/17 10:19 (Arturo Gill) Physical Examination GENERAL: Asleep but awakens to voice, readily interacts, affect essentially normal, no evident distress. HEAD: Normocephalic, atraumatic. PERRLA 2 mm brisk, EOMI. MMM & pink, tongue midline to protrusion. MUSCULOSKELETAL: OQUENDO w/o difficulty, no evident clubbing or deformity. NEUROLOGICAL: Sleeping but awakens to voice, oriented.to person & place. Speech clear & appropriate. Follows simple commands w/o difficulty. 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 Sensation intact to light touch to all extremities. Motor strength is 5/5 on right and 4+/5 on left to all major flexion & extension muscle groups. (Arturo Glil) Lab, Micro, Other Results Recent Impressions Chest X-Ray 02/01/17 0000 Signed Impressions: Service Date/Time: January 06:48 - CONCLUSION: Increasing left lower lobe infiltrates.. Sigifredo Esposito MD Shoulder X-Ray 01/30/17 0000 Signed Impressions: Service Date/Time: Monday, January 30, 2017 09:41 - CONCLUSION: No fracture. Dawson Ballesteros MD Shoulder MRI 01/30/17 0000 Signed Impressions: Service Date/Time: Monday, January 30, 2017 12:05 - CONCLUSION: Tendinopathy and thinning involving the distal 1 cm of the supraspinatus tendon. There is a moderate joint effusion and marked fluid in the subacromion subdeltoid bursa. Deltoid muscle sprain. Vickey Villanueva MD Radius/Ulna X-Ray 01/30/17 0000 Signed Impressions: Service Date/Time: Monday, January 30, 2017 09:12 - CONCLUSION: 1. Forearm is intact. 2. However, possible fracture through the distal aspect of the first metacarpal versus Mach lines secondary to the regional sesamoid bones. If patient does not complain of any discomfort in this location, no further workup is necessary. Otherwise, dedicated views of the thumb would be suggested. 3. Benign-appearing osseous cyst at the base of the first metacarpal and in scattered carpal bones with regional degenerative changes. Dawson Ballesteros MD Hand X-Ray 01/30/17 0000 Signed Impressions: Service Date/Time: Monday, January 30, 2017 13:57 - CONCLUSION: 1. Generalized soft tissue swelling 2. Mild arthropathy of the interphalangeal joints. 3. No evidence of acute fracture or dislocation. Mor Mckinnon MD Laboratory Tests Test 01/29/17 10:30 01/29/17 10:40 01/29/17 12:20 01/29/17 13:00 Urine Color LIGHT-YELLOW Urine Turbidity CLEAR Urine pH 7.0 Urine Specific [place] 1.012 Urine Protein 300 mg/dL Urine Glucose (UA) NEG mg/dL Urine Ketones TRACE mg/dL Urine Occult Blood SMALL Urine Nitrite NEG Urine Bilirubin NEG Urine Urobilinogen LESS THAN 2.0 MG/DL Urine Leukocyte Esterase NEG Urine RBC 3 /hpf Urine WBC 3 /hpf Urine Squamous Epithelial Cells <1 /hpf Urine Hyaline Casts 4 /lpf Urine Mucus FEW /lpf Microscopic Urinalysis Comment CATH-CULT NOT IND Nasal Screen MRSA (PCR) MRSA NOT DETECTED Lactic Acid Level 4.4 mmol/L Blood Gas Puncture Site RT RADIAL Blood Gas Patient Temperature 98.6 Blood Gas HCO3 21 mmol/L Blood Gas Base Excess -3.4 mmol/L Blood Gas Oxygen Saturation 97 % Arterial Blood pH 7.35 Arterial Blood Partial Pressure CO2 40 mmHg Arterial Blood Partial Pressure O2 141 mmHg Arterial Blood Oxygen Content 17.1 Vol % Arterial Blood Carboxyhemoglobin 0.8 % Arterial Blood Methemoglobin 0.9 % Blood Gas Hemoglobin 12.4 G/DL Oxygen Delivery Device VENTILATOR Blood Gas Ventilator Setting Blood Gas Inspired Oxygen 50 % Test 01/29/17 16:00 01/30/17 05:25 01/30/17 15:00 01/31/17 05:43 Blood Urea Nitrogen 13 MG/DL 13 MG/DL 16 MG/DL Creatinine 0.98 MG/DL 0.98 MG/DL 0.94 MG/DL Random Glucose 163 MG/DL 123 MG/DL 107 MG/DL Total Protein 7.0 GM/DL 5.8 GM/DL Albumin 3.0 GM/DL 2.4 GM/DL Calcium Level 7.5 MG/DL 7.9 MG/DL 7.7 MG/DL Phosphorus Level 2.3 MG/DL Magnesium Level 1.6 MG/DL 1.5 MG/DL 2.0 MG/DL 1.8 MG/DL Alkaline Phosphatase 80 U/L 56 U/L Aspartate Amino Transf (AST/SGOT) 13 U/L 19 U/L Alanine Aminotransferase (ALT/SGPT) 17 U/L 14 U/L Total Bilirubin 0.5 MG/DL 0.7 MG/DL Sodium Level 139 MEQ/L 141 MEQ/L 138 MEQ/L Potassium Level 3.7 MEQ/L 3.1 MEQ/L 3.7 MEQ/L 3.4 MEQ/L Chloride Level 105 MEQ/L 109 MEQ/L 107 MEQ/L Carbon Dioxide Level 25.6 MEQ/L 22.8 MEQ/L 22.9 MEQ/L Anion Gap 8 MEQ/L 9 MEQ/L 8 MEQ/L Estimat Glomerular Filtration Rate 54 ML/MIN 54 ML/MIN 57 ML/MIN Lactic Acid Level 3.3 mmol/L 2.1 mmol/L Vitamin B12 Level 1837 PG/ML White Blood Count 14.0 TH/MM3 Red Blood Count 3.69 MIL/MM3 Hemoglobin 11.1 GM/DL Hematocrit 32.1 % Mean Corpuscular Volume 87.0 FL Mean Corpuscular Hemoglobin 30.1 PG Mean Corpuscular Hemoglobin Concent 34.5 % Red Cell Distribution Width 12.8 % Platelet Count 251 TH/MM3 Mean Platelet Volume 8.9 FL Phenytoin (Dilantin) Level 15.3 MCG/ML Test 02/01/17 04:15 02/01/17 08:00 Potassium Level 4.1 MEQ/L Phenytoin (Dilantin) Level 14.9 MCG/ML White Blood Count 10.3 TH/MM3 Red Blood Count 3.63 MIL/MM3 Hemoglobin 11.0 GM/DL Hematocrit 31.3 % Mean Corpuscular Volume 86.4 FL Mean Corpuscular Hemoglobin 30.4 PG Mean Corpuscular Hemoglobin Concent 35.1 % Red Cell Distribution Width 13.1 % Platelet Count 233 TH/MM3 Mean Platelet Volume 9.5 FL Neutrophils (%) (Auto) 80.3 % Lymphocytes (%) (Auto) 7.5 % Monocytes (%) (Auto) 5.0 % Eosinophils (%) (Auto) 5.9 % Basophils (%) (Auto) 1.3 % Neutrophils # (Auto) 8.2 TH/MM3 Lymphocytes # (Auto) 0.8 TH/MM3 Monocytes # (Auto) 0.5 TH/MM3 Eosinophils # (Auto) 0.6 TH/MM3 Basophils # (Auto) 0.1 TH/MM3 CBC Comment DIFF FINAL Differential Comment (Arturo Gill) Medical Decision Making Impression and Plan Impression: 1. Recurrent dorsum sella meningioma with impingement on the optic chiasm and nerves, anterior cervical arteries and anterior communicating artery as well as the pituitary stalk. The lesion extends primarily towards the left planum sphenoidale and cribriform plate with impingement on the inferior medial left frontal lobe, but no significant overall mass effect. Significant bilateral chronic frontal encephalomalacia. 2. New onset seizure 3. New-onset atrial fibrillation 4. History of Hypertension No significant overall mass effect from the neoplasm at present. However impingement on the left medial frontotemporal parenchyma is a potential source of the new seizures. Given the proximity to the optic nerves and chiasm, pituitary stalk and anterior cerebral arteries, radiation therapy and radiosurgery may be less optimal options. Patient continues to do well and appears neurologically intact. Reviewed labs. Haemoglobin stable. Hypokalemia resolved. Patient's daughter states at this time the patient wants to proceed with conservative treatment and not have any surgery or radiation therapy. Plan: Primary management per Clerk Of Works/Hospitalist. Antiepileptics per Neurology. Neuro checks. Stat CT brain for any decline in neurological status. May begin antiplatelet agent as indicated for new onset atrial fibrillation as well as Lovenox for DVT prophylaxis. Mobilise patient w/assistance. PT/OT/ST eval & tx. (Arturo Gill) Attending Statement The exam, history, and the medical decision-making described in the above note were completed with the assistance of the mid-level provider. I reviewed and agree with the findings presented. I attest that I had a [id number] encounter with the patient on the same day, and personally performed and documented my assessment and findings in the medical record. On examination 02/01/2017 patient remains awake and alert. She is very conversant, although a little difficult for me to understand well. She talks very fast. However no definite dysarthria. She follows simple commands well. Extraocular movements intact Good motor strength all extremities Therapy notes reviewed No further seizure activity reported Doing well from neurosurgical standpoint She is stable for discharge home today Plan outpatient follow-up to discuss treatment options with the patient and her family. At this point the family has indicated that they do not desire further surgical intervention. Continuing anticonvulsant therapy with neurology following. (Peter Fabian MD) Arturo Gill Feb 01, 2017 10:01 Peter Fabian MD Feb 01, 2017 18:53
[2017-02-01] MEDS ORDERED: DILA100C PO (12:01)
[2017-02-01] MEDS ORDERED: ASPI81 CHEW (12:01)
[2017-02-01] MEDS ORDERED: CARV6.25 PO (12:01)
[2017-02-01] MEDS ORDERED: WHEEMIS3 (12:06)
[2017-02-01] MEDS ORDERED: WALKER WHEELS/F1 MIS (12:06)
--- NOTE | 2017-02-01 12:07 | HHI.DS ---
Discharge Summary Admission Date Jan 29, 2017 at 10:03 Admitting Diagnosis Status epilepticus, afib RVR (1) Acute encephalopathy ICD Code: G93.40 - Encephalopathy, unspecified Diagnosis: Principal (2) New onset seizure ICD Code: R56.9 - Unspecified convulsions Diagnosis: Principal (3) Todds paralysis vs acute CVA Diagnosis: Principal (4) Acute respiratory failure ICD Code: J96.00 - Acute respiratory failure, unspecified whether with hypoxia or hypercapnia Diagnosis: Principal (5) Possible aspiration Diagnosis: Principal (6) Left shoulder strain ICD Code: S46.912A - Strain of unspecified muscle, fascia and tendon at shoulder and upper arm level, left arm, initial encounter (7) Multifocal atrial tachycardia ICD Code: I47.1 - Supraventricular tachycardia Diagnosis: Principal (8) History of resection of meningioma ICD Code: Z98.890 - Other specified postprocedural states Diagnosis: Principal Brief History Patient is a 71-year-old female with past medical history significant for a left frontal meningioma resection in 2001 with residual tumor (MRI showing meningioma 5.4x4.4x1.6cm), hypertension, dyslipidemia who was found to have a 5-10 minutes witnessed tonic-clonic seizure today. EMS was called and on their arrival patient had another two-minute tonic-clonic seizures and received 2 mg Ativan. In the ER was evaluated by Dr. Harper. Critical care medicine was consulted for new onset seizures and postictal encephalopathy. I immediately evaluated the patient in the ED. Patient is difficult to arouse even though she opens eyes to painful stimuli immediately goes back to sleep. Withdraws extremities localizes with left upper extremity. Right upper extremity appeared weaker. Her chest exam revealed bilateral coarse wheezes and crackles, airway protection questionable. A stat CT showed bifrontal encephalomalacia but no acute findings. Patient was emergently moved to the ICU and I intubated her for airway protection. Also placed left IJ central line. Case discussed extensively with Dr. Osman neurology. In his opinion, which I agree it appears that patient suffered new onset grand mal seizure with Gómez's paralysis and less likely to be acute CVA. With history of meningioma Dr. Osman does not want to do empiric TPA. We will get a stat MRI of the brain. Daughter was updated. Patient has a history of questionable TIA about 4 years ago. I have ordered Cerebyx loading dose 1 g and continued Cerebyx at 100 mg every 8 hours. Stat EEG also pending at this time. I'm also given a history that patient has chronic Xanax use 0.25 mg daily at bedtime for insomnia. She had ran out of Xanax since 01/26/17. Patient was also found to be in MAT with rapid ventricular response which is new onset. Post intubation and sedation rate is controlled patient remains in A. fib CBC/BMP: 02/01/17 0800 02/01/17 0415 Significant Findings Laboratory Tests Test 01/29/17 12:20 01/29/17 13:00 01/29/17 16:00 01/30/17 05:25 Lactic Acid Level 4.4 mmol/L (0.4-2.0) 3.3 mmol/L (0.4-2.0) 2.1 mmol/L (0.4-2.0) Blood Gas HCO3 21 mmol/L (22-26) Blood Gas Base Excess -3.4 mmol/L (-2-2) Arterial Blood pH 7.35 (7.380-7.420) Arterial Blood Partial Pressure O2 141 mmHg (61-120) Random Glucose 163 MG/DL (74-106) 123 MG/DL (74-106) Albumin 3.0 GM/DL (3.4-5.0) Calcium Level 7.5 MG/DL (8.5-10.1) 7.9 MG/DL (8.5-10.1) Phosphorus Level 2.3 MG/DL (2.5-4.9) Aspartate Amino Transf (AST/SGOT) 13 U/L (15-37) Estimat Glomerular Filtration Rate 54 ML/MIN (>89) 54 ML/MIN (>89) Vitamin B12 Level 1837 PG/ML (193-986) White Blood Count 14.0 TH/MM3 (4.0-11.0) Red Blood Count 3.69 MIL/MM3 (4.00-5.30) Hemoglobin 11.1 GM/DL (11.6-15.3) Hematocrit 32.1 % (35.0-46.0) Potassium Level 3.1 MEQ/L (3.5-5.1) Chloride Level 109 MEQ/L (98-107) Test 01/30/17 15:00 01/31/17 05:43 02/01/17 04:15 02/01/17 08:00 Random Glucose 107 MG/DL (74-106) Total Protein 5.8 GM/DL (6.4-8.2) Albumin 2.4 GM/DL (3.4-5.0) Calcium Level 7.7 MG/DL (8.5-10.1) Potassium Level 3.4 MEQ/L (3.5-5.1) Estimat Glomerular Filtration Rate 57 ML/MIN (>89) Red Blood Count 3.63 MIL/MM3 (4.00-5.30) Hemoglobin 11.0 GM/DL (11.6-15.3) Hematocrit 31.3 % (35.0-46.0) Neutrophils (%) (Auto) 80.3 % (16.0-70.0) Lymphocytes (%) (Auto) 7.5 % (9.0-44.0) Eosinophils (%) (Auto) 5.9 % (0.0-4.0) Neutrophils # (Auto) 8.2 TH/MM3 (1.8-7.7) Lymphocytes # (Auto) 0.8 TH/MM3 (1.0-4.8) Eosinophils # (Auto) 0.6 TH/MM3 (0-0.4) Imaging MRI brain stable meningioma Left shoulder MRI- Tendinopathy and thinning involving the distal 1 cm of the supraspinatus tendon, moderate joint effusion and marked fluid in the subacromion subdeltoid bursa. PE at Discharge GENERAL: 81-year-old female alert awake oriented, hard of hearing SKIN:Warm/dry. HEAD: Atraumatic. Normocephalic. EYES: Pupils equal and round at 2mm bilaterally. ENT: No nasal bleeding or discharge. NECK: Trachea midline. No JVD. CARDIOVASCULAR: NSR. No murmur appreciated. RESPIRATORY: Coarse breath sounds bilaterally. Occasional expiratory wheezing GASTROINTESTINAL: Abdomen soft, non-tender, nondistended. MUSCULOSKELETAL: L shoulder swelling and pain on movement NEUROLOGICAL: Alert awake hard of hearing oriented to person and place. No focal deficits Hospital Course Patient is a 71-year-old female with past medical history significant for a left frontal meningioma resection in 2001 with residual tumor (MRI showing meningioma 5.4x4.4x1.6cm), hypertension, dyslipidemia who was found to have a 5-10 minutes witnessed tonic-clonic seizure today. EMS was called and on the arrival patient had another two-minute tonic-clonic seizures and received 2 mg Ativan. In the ER was evaluated by Dr. Harper. Critical care medicine was consulted for new onset seizures and postictal encephalopathy. I immediately evaluated the patient in the ED. Patient is difficult to arouse even though she opens eyes to painful stimuli immediately goes back to sleep. Withdraws extremities localizes with left upper extremity. Right upper extremity appeared weaker. Her chest exam revealed bilateral coarse wheezes and crackles, airway protection questionable. A stat CT showed bifrontal encephalomalacia but no acute findings. Patient was emergently moved to the ICU and I intubated her for airway protection. Also placed left IJ central line. Case discussed extensively with Dr. Osman neurology. 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 With history of meningioma Dr. Osman does not want to do empiric TPA. We will get a stat MRI of the brain. Daughter was updated. Patient has a history of questionable TIA about 4 years ago. I have ordered Cerebyx loading dose 1 g and continued Cerebyx at 100 mg every 8 hours. Stat EEG also pending at this time. I'm also given a history that patient has chronic Xanax use 0.25 mg daily at bedtime for insomnia. She had ran out of Xanax since 01/26/17. Patient was also found to be in MAT with rapid ventricular response which is new onset. Post intubation and sedation rate controlled patient remains in A. fib SUBJ 01/30: Patient remains intubated sedated. Remains in atrial fibrillation, rate controlled. Cleared by neurosrugery for antiplatelet therapy. Will check again with Dr. Fabian and start anticoagulation with Lovenox and transition to coumadin. [id number] score is 4. Patient wakes up easily follows commands. Plan for SBT with possible extubation, No further seizures SUBJ 01/31: Extubated yesterday tolerating well. No further seizures reported. Left shoulder pain MRI shows Tendinopathy and thinning involving the distal 1 cm of the supraspinatus tendon, moderate joint effusion and marked fluid in the subacromion subdeltoid bursa. Deltoid muscle sprain. Dr. Schultz recommended nonoperative management with use of the sling for comfort, physical therapy 02/01: No seizures. Intermittent exertional dyspnea, and wheezing. Chest x- ray showing mild pulmonary vascular congestion. Breathing treatment given IV Lasix 20 mg 1 and potassium replacement ordered Feels better on re-eval. D/W daughter Cherene- DC home with PT, home health, family/daughter to stay with patient Pt Condition on Discharge: Stable Discharge Disposition: Discharge Home Discharge Instructions DIET: Follow Instructions for: Heart Healthy Diet Speech Therapy-Diet Recommends: Mechanical Soft Activities you can perform: See Additionl Instruction Other Activity Instructions: Per PT recommendation New Orders: PHENYTOIN (DILANTIN) - 2-3 Days New Medications: Walker with Front Wheels (Walker with Front Wheels) 1 Mis Mis EA .ROUTE DIRECTED, #1 0 Refills Wheelchair (Wheelchair) 1 Mis Mis EA .ROUTE DIRECTED, #1 0 Refills Aspirin (Tgt Aspirin) 81 Mg Chw 81 MG CHEW DAILY for CAD risk for 30 Days, #30 EA 1 Refill Carvedilol (Coreg) 6.25 Mg Tab 6.25 MG PO Q12HR for Hypertension for 30 Days, #60 TAB 1 Refill Phenytoin Extended (Dilantin) 100 Mg Cap 100 MG PO Q12H for seizure, #60 CAP 1 Refill Continued Medications: Chlorothiazide (Chlorothiazide) 250 Mg Tab 250 MG PO DAILY for Blood Pressure Management, #30 TAB 0 Refills Lisinopril (Lisinopril) 5 Mg Tab 5 MG PO DAILY for Blood Pressure Management, #30 TAB 0 Refills Simvastatin (Zocor) 10 Mg Tab 10 MG PO DAILY for Cholesterol Management, #30 TAB 0 Refills Discontinued Medications: Alprazolam (Xanax) 0.25 Mg Tab 0.25 MG PO Q6H PRN for ANXIETY, TAB 0 Refills Additional Information Please make appointment with PCP 2-3 days Call office to make appointment with Rui Ryan and Juan Rainey MD Feb 01, 2017 12:07
--- NOTE | 2017-02-01 12:09 | HHI.FF ---
Face to Face Verification Diagnosis: (1) Todds paralysis vs acute CVA (2) New onset seizure Physical Therapy Order: Evaluate and Treat, Improve ambulation, Strength and gait training Home Health Nursing Order: Medical education Signs/symptoms of disease process Medication education-adverse effect Nursing assessment with vital signs I have seen patient Fallon Aquino on 02/01/17. My clinical findings support the need for the requested home health care services because: Ltd mobility - disease progression Patient has SOB Deconditioned w/ increased weakness Limited ability to care for self High risk of falls I certify that my clinical findings support that this patient is homebound because: Unsteady gait/balance Unsafe to leave home unassisted Unable to use public transportation Juan Cook MD Feb 01, 2017 12:09
--- NOTE | 2017-02-01 12:58 | PD.CARD.PN ---
Subjective Subjective Remarks No CP or SOB, no evidence of a fib Objective Medications Current Medications Medications (Trade) Dose Ordered Sig/Josefina Route Start Time Stop Time Status Last Admin (Brethine Inj) 1 mg UNSCH PRN SQ 01/29/17 10:15 (Aspirin Chew) 81 mg DAILY CHEW 01/30/17 09:00 02/01/17 09:32 (Duoneb Neb) 1 ampule Q4HR NEB PRN NEB 01/29/17 13:15 02/01/17 05:18 (Prinivil) 5 mg DAILY PO 01/30/17 09:00 02/01/17 09:32 (Pravachol) 20 mg DAILY PO 01/30/17 09:00 02/01/17 09:33 (Coreg) 6.25 mg Q12HR PO 01/30/17 09:00 02/01/17 09:32 (Dilantin) 100 mg Q12H PO 02/01/17 13:00 02/01/17 12:44 (Diuril) 250 mg DAILY PO 02/01/17 09:00 02/01/17 09:55 Vital Signs / I&O Vital Signs Date Time Temp Pulse Resp B/P (MAP) Pulse Ox O2 Delivery O2 Flow Rate FiO2 02/01/17 10:54 21 02/01/17 10:28 97 Nasal Cannula 3.50 02/01/17 08:00 98.1 100 21 149/62 (91) 95 02/01/17 08:00 95 Room Air 02/01/17 08:00 100 02/01/17 06:00 84 02/01/17 05:19 96 02/01/17 04:00 98.8 78 22 130/62 (84) 96 02/01/17 04:00 78 02/01/17 02:00 111 02/01/17 00:00 98.8 72 21 157/71 (99) 95 02/01/17 00:00 72 01/31/17 22:00 70 01/31/17 21:04 96 21 01/31/17 20:00 74 01/31/17 20:00 99.1 74 26 166/74 (104) 95 01/31/17 19:00 95 Room Air 01/31/17 16:00 74 01/31/17 16:00 98.3 74 16 128/61 (83) 98 I/O 01/31/17 01/31/17 01/31/17 02/01/17 02/01/17 02/01/17 07:00 15:00 23:00 07:00 15:00 23:00 Intake Total 724 ml 212 ml 540 ml 300 ml Output Total 400 ml 140 ml Balance 324 ml 212 ml 400 ml 300 ml Intake Oral 240 ml 300 ml IV Total 484 ml 212 ml 540 ml Output Urine Total 400 ml 140 ml # Voids 5 # Bowel Movements 1 0 0 Physical Exam GENERAL: In NAD SKIN: Warm and dry. HEAD: Normocephalic. EYES: No scleral icterus. No injection or drainage. NECK: Supple, trachea midline. No JVD or lymphadenopathy. CARDIOVASCULAR: Regular rate and rhythm without murmurs, gallops, or rubs. RESPIRATORY: Breath sounds equal bilaterally. No accessory muscle use. GASTROINTESTINAL: Abdomen soft, non-tender, nondistended. MUSCULOSKELETAL: No cyanosis, or edema. Laboratory Laboratory Tests Test 02/01/17 04:15 02/01/17 08:00 Potassium Level 4.1 MEQ/L Phenytoin (Dilantin) Level 14.9 MCG/ML White Blood Count 10.3 TH/MM3 Red Blood Count 3.63 MIL/MM3 Hemoglobin 11.0 GM/DL Hematocrit 31.3 % Mean Corpuscular Volume 86.4 FL Mean Corpuscular Hemoglobin 30.4 PG Mean Corpuscular Hemoglobin Concent 35.1 % Red Cell Distribution Width 13.1 % Platelet Count 233 TH/MM3 Mean Platelet Volume 9.5 FL Neutrophils (%) (Auto) 80.3 % Lymphocytes (%) (Auto) 7.5 % Monocytes (%) (Auto) 5.0 % Eosinophils (%) (Auto) 5.9 % Basophils (%) (Auto) 1.3 % Neutrophils # (Auto) 8.2 TH/MM3 Lymphocytes # (Auto) 0.8 TH/MM3 Monocytes # (Auto) 0.5 TH/MM3 Eosinophils # (Auto) 0.6 TH/MM3 Basophils # (Auto) 0.1 TH/MM3 CBC Comment DIFF FINAL Differential Comment Imaging Last 24 hours Impressions Chest X-Ray 02/01/17 0000 Signed Impressions: Service Date/Time: January 06:48 - CONCLUSION: Increasing left lower lobe infiltrates.. Sigifredo Esposito MD Assessment and Plan Problem List: (1) Atrial ectopy ICD Codes: I49.1 - Atrial premature depolarization (2) New onset seizure ICD Codes: R56.9 - Unspecified convulsions (3) Todds paralysis vs acute CVA (4) Acute respiratory failure ICD Codes: J96.00 - Acute respiratory failure, unspecified whether with hypoxia or hypercapnia (5) History of resection of meningioma ICD Codes: Z98.890 - Other specified postprocedural states Assessment and Plan Remains stable from cardiac standpoint. Tele with SR and frequent PACs. Previous telemetry strips and EKGs thoroughly reviewed; there is no evidence of atrial fibrillation. Echo with normal LV systolic function. No recurrent seizures. Increase activity. Transfer to floor. D/w pt and family. Will schedule outpatient card f/u. Alexandria Rivera MD Feb 01, 2017 12:58
[2017-02-01] MEDS ORDERED: PHENYTOIN SODIUM 100 MG CAP PO SCH (13:00)
== END 2017-02-01 13:34 | disposition home or self-care (01) | DRG 100 ==
LOC: NEPC 09:07 → NEDA 10:03 → N03A 10:11
PROVIDERS: ADMIT Internal Medicine; ATTEND Internal Medicine
PROC: 5A1935Z Respiratory Ventilation, Less than 24 Consecutive Hours (ICD-10-PCS; principal; 2017-01-29)
PROC: 0BH17EZ Insertion of Endotracheal Airway into Trachea, Via Natural or Artificial Opening (ICD-10-PCS; 2017-01-29)
PROC: 05HN33Z Insertion of Infusion Device into Left Internal Jugular Vein, Percutaneous Approach (ICD-10-PCS; 2017-01-29)
DX: G40.409 Other generalized epilepsy and epileptic syndromes, not intractable, without status epilepticus (principal); J69.0 Pneumonitis due to inhalation of food and vomit; J96.01 Acute respiratory failure with hypoxia; G93.40 Encephalopathy, unspecified; N17.9 Acute kidney failure, unspecified; I47.1 Supraventricular tachycardia; I48.91 Unspecified atrial fibrillation; Z86.011 Personal history of benign neoplasm of the brain; F41.9 Anxiety disorder, unspecified; E78.00 Pure hypercholesterolemia, unspecified; H91.93 Unspecified hearing loss, bilateral; I10 Essential (primary) hypertension; G93.89 Other specified disorders of brain; G83.84 Todd's paralysis (postepileptic); Z86.73 Personal history of transient ischemic attack (TIA), and cerebral infarction without residual deficits; E78.5 Hyperlipidemia, unspecified; E86.0 Dehydration; E87.6 Hypokalemia; R73.9 Hyperglycemia, unspecified; D32.0 Benign neoplasm of cerebral meninges; G47.00 Insomnia, unspecified; S46.912A Strain of unspecified muscle, fascia and tendon at shoulder and upper arm level, left arm, initial encounter; W19.XXXA Unspecified fall, initial encounter
CPT/HCPCS: 31500; 36600; 70450; 70553; 71010; 73020; 73090; 73120; 73221; 80048; 80053; 80185; 81001; 82607; 82805; 82948; 83036; 83605; 83735; 84100; 84132; 84443; 84484; 85007; 85025; 85027; 85610; 85730; 87040; 87070; 87205; 87641; 93005; 93306; 94002; 94640; 94664; 95819; 96374; A9579; J1650; J1815; J1885; J1940; J2060; J2250; J3475; J3480; J7030; J7050; Q2009

== ENCOUNTER 2017-07-01 09:35 | Emergency (ER) | payer MEDICARE, OTHER ==
[~2017-07-01 09:35] MED LIST changes: -ALPR.25 PO; +ASPI81 CHEW; +CARV6.25 PO; +CHLORO250 PO; +DILA100C PO; -HYDR-2768 PO; -LISI-360 PO; +LISI-519 PO; -MMW SS; -PRED20 PO; -SIMV20TA PO; -TRAM100T19 PO; +WALKER WHEELS/F1 MIS; +WHEEMIS3; +ZOCO10TA PO
[2017-07-01 10:05] VITALS: BP 186/77; PULSE 51; RESP 16; TEMP 98.2; O2SAT 98
[2017-07-01] MEDS ORDERED: ALPR.25 PO (10:22)
[2017-07-01] MEDS ORDERED: K-TA10TA PO (10:22)
--- NOTE | 2017-07-01 11:19 | PD ---
HPI Chief Complaint: Injury Time Seen by Provider: 11:11 Travel History International Travel<30 days: No Contact w/Intl Traveler<30days: No Traveled to known affect area: No History of Present Illness HPI This is an 82-year-old female here with left wrist pain 2 days. Her granddaughter reports that she has a history of a ganglion cyst in this region has had episodes of pain in the past. Over the last 2 days the area has become increasingly more swollen causing pain. She does not recall specific injury to the wrist. No fever chills. The pain is localized to the wrist only. She has difficulty moving the wrist and fingers due to pain. Severity is moderate. Unrelieved by Tylenol and Aleve. PFSH Past Medical History Hx Anticoagulant Therapy: Yes (ASA) Anxiety: Yes Heart Rhythm Problems: No Cancer: No Cardiovascular Problems: Yes High Cholesterol: No Chest Pain: No Congestive Heart Failure: No Diabetes: No Diminished Hearing: Yes ([place].) Endocrine: No Genitourinary: No Hypertension: Yes Immune Disorder: No Musculoskeletal: No Neurologic: No Psychiatric: No Reproductive: No Respiratory: No Immunizations Current: No ?: Not Menopausal: Yes Past Surgical History Abdominal Surgery: No Cardiac Surgery: No Ear Surgery: No Endocrine Surgery: No Eye Surgery: No Genitourinary Surgery: No Gynecologic Surgery: No Neurologic Surgery: Yes (PARTIAL BENIGN BRAIN TUMOR REMOVED [address] LAURENT) Oral Surgery: No Thoracic Surgery: No Social History Alcohol Use: No Tobacco Use: No Substance Use: No Allergies-Medications (Allergen,Severity, Reaction): Coded Allergies: penicillin G (Verified Allergy, Mild, HIVES, 07/01/17) Reported Meds & Prescriptions Reported Meds & Active Scripts Active [place] (Hydrocodone-Acetaminophen) 5 Mg-325 Mg Tab 1 Tab PO Q6H PRN Ibuprofen 800 Mg Tab 800 Mg PO Q6HR PRN Walker with Front Wheels (Device) 1 Mis Mis Ea .ROUTE DIRECTED Wheelchair (Device) 1 Mis Mis Ea .ROUTE DIRECTED Dilantin (Phenytoin Extended) 100 Mg Cap 100 Mg PO Q12H Tgt Aspirin (Aspirin) 81 Mg Chw 81 Mg CHEW DAILY 30 Days Coreg (Carvedilol) 6.25 Mg Tab 6.25 Mg PO Q12HR 30 Days Reported Xanax (Alprazolam) 0.25 Mg Tab 0.25 Mg PO Q6H PRN K-Tab (Potassium Chloride) 10 Meq Tab 10 Meq PO DAILY Chlorothiazide 250 Mg Tab 250 Mg PO DAILY Lisinopril 5 Mg Tab 10 Mg PO BID Zocor (Simvastatin) 10 Mg Tab 10 Mg PO DAILY Review of Systems Except as stated in HPI: all other systems reviewed are Neg General / Constitutional: No: Fever Eyes: No: Visual changes HENT: No: Headaches Cardiovascular: No: Chest Pain or Discomfort Respiratory: No: Shortness of Breath Gastrointestinal: No: Abdominal Pain Genitourinary: No: Dysuria Physical Exam Narrative GENERAL: Alert and well-appearing 82-year-old female SKIN: Warm and dry. No warmth or erythema. HEAD: Normocephalic. EYES:No injection or drainage. NECK: Supple CARDIOVASCULAR: Regular rate and rhythm without murmurs, gallops, or rubs. RESPIRATORY: Breath sounds equal bilaterally. No accessory muscle use. GASTROINTESTINAL: Abdomen soft, non-tender, nondistended. MUSCULOSKELETAL: No cyanosis. LUE: + Tenderness and swelling to the wrist. No other bony tenderness. Palpable radial pulse. Limited flexion and extension due to pain. She can freely wiggle the fingers. Normal sensation. Brisk cap refill. Data Data Last Documented VS Vital Signs Date Time Temp Pulse Resp B/P (MAP) Pulse Ox O2 Delivery O2 Flow Rate FiO2 07/01/17 10:05 98.2 51 16 186/77 (113) 98 Orders Orders Wrist, Complete ([id number]) (07/01/17 ) Ketorolac Inj (Toradol Inj) (07/01/17 12:45) Ed Discharge Order (07/01/17 12:45) Splint Or Brace Apply/Monitor (07/01/17 12:45) [facility] Medical Decision Making Medical Screen Exam Complete: Yes Emergency Medical Condition: Yes Differential Diagnosis Fracture versus ganglion cyst versus arthralgia versus gout Narrative Course 82-year-old female here with left wrist pain. Extremities neurovascularly intact. 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 Wrist splint applied. Patient and family were given copy of x-ray report. She is referred Ortho [facility] follow-up. They verbalized understanding and agree to plan Diagnosis Primary Impression: Wrist pain Qualified Codes: M25.532 - Pain in left wrist Referrals: Rahat Carrasquillo MD Orthopedist Additional Instructions: Wrist splint as directed. Follow-up with orthopedist. Pain medication as directed. Scripts Ibuprofen (Ibuprofen) 800 Mg Tab 800 MG PO Q6HR Y for PAIN, #20 TAB 0 Refills Prov: Adriana Garcia 07/01/17 Disposition: 01 DISCHARGE HOME Condition: Stable Adriana Garcia July 01, 2017 11:19
--- NOTE | 2017-07-01 11:38 | RADRPT ---
EXAM DATE/TIME: 07/01/2017 11:20 [facility] COMPARISON: No previous studies available for comparison. INDICATIONS : Left wrist pain; no known injury. MEDICAL HISTORY : None. SURGICAL HISTORY : None. ENCOUNTER: Initial ACUITY: 2 days PAIN SCORE: 7/10 LOCATION: Left wrist. FINDINGS: Three view examination of the left wrist demonstrates no dislocation, or fracture. There are calcifi cations identified within the TFCC and focal soft tissue eminence adjacent to the ulnar aspect of the carpus. The carpal bones are in normal alignment. The joint spaces are maintained. Bony mineraliza tion is normal. 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 Soft tissue edema identified within t he adjacent soft tissues. Radha Grubbs MD on July 01, 2017 at 11:34 Board Certified Radiologist. This report was verified electronically.
[2017-07-01] MEDS ORDERED: IBUP1TAB7 PO (12:38)
[2017-07-01] MEDS ORDERED: NORC5TAB PO (12:38)
[2017-07-01] MEDS ORDERED: KETOROLAC TROMETHAMINE 60 MG/2 ML (IM) VIAL IM ONE (12:45)
== END 2017-07-01 13:00 | disposition home or self-care (01) ==
LOC: PHEFT 09:35
DX: M25.532 Pain in left wrist (principal); F41.9 Anxiety disorder, unspecified; I10 Essential (primary) hypertension
CPT/HCPCS: 73110; 96372; 99283; J1885; L3908